=== PATIENT | male | born 1940 | race Caucasian/White ===

== ENCOUNTER 2017-10-13 15:32 | Inpatient (IN) | payer MEDICARE, OTHER ==
--- NOTE | 2017-10-13 16:01 | ED Physician Documentation ---
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 He was recently brought up from [place] to be with daughter as He was not thriving well at home. He has been confused on and off, but over the last couple of days his confusion has gone up and he is developed significant anasarca despite starting Lasix 40 mg twice daily a couple of days ago.) Review of Systems Ten Systems: 10 systems reviewed and negative Constitutional: denies: Fever, Chills Nose: denies: Rhinorrhea / runny nose, Congestion Cardiac: denies: Chest pain / pressure, Palpitations Respiratory: reports: Dyspnea (at night) PD PAST MEDICAL HISTORY - Past Medical History Past Medical History: Yes GI: Cirrhosis Other Past Medical History: melanoma, colon cancer, brain metastasis, mediastinal mass, mengioma, pancytopenia, pulmonary nodules/lesions, thrombocytopenia - Past Surgical History Past Surgical History: Yes Derm: Skin cancer surgery - Present Medications Home Medications: Ambulatory Orders Medication Instructions Recorded Confirmed Furosemide [Lasix] 1 tab PO BID 10/13/17 10/13/17 Glipizide [Glipizide ER] 1 tab PO DAILY 10/13/17 10/13/17 Lactulose 15 ml PO TID 10/13/17 10/13/17 Metoprolol Tartrate 1 tab PO BID 10/13/17 10/13/17 Omeprazole 40 mg PO DAILY 10/13/17 10/13/17 Pravastatin [Pravachol] 20 mg PO DAILY 10/13/17 10/13/17 Sertraline HCl [Zoloft] 100 mg PO DAILY 10/13/17 10/13/17 Sitagliptin Phosphate [Januvia] 25 mg PO DAILY 10/13/17 10/13/17 Tamsulosin [Flomax] 1 cap PO DAILY 10/13/17 10/13/17 clonazePAM [Clonazepam] 1 mg PO BID 10/13/17 10/13/17 - Allergies Allergies/Adverse Reactions: Allergies Allergy/AdvReac Type Severity Reaction Status Date / Time No Known Drug Allergies Allergy Verified 01/18/18 15:47 - Social History Does the pt smoke?: No Smoking Status: Never smoker Does the pt drink ETOH?: No Does the pt have substance abuse?: No - Family History Family history: reports: Non contributory - Immunizations Immunizations are current?: Yes PD ED PE NORMAL - Vitals Vital signs reviewed: Yes - General General: Alert and oriented X 3, Other (Somnolent but arousable, answers questions and is coherent) - HEENT HEENT: PERRL, EOMI, Other (Dry mucous membranes) - Neck Neck: Supple, no meningeal sign, No bony TTP - Cardiac Cardiac: RRR, No murmur - Respiratory Respiratory: No respiratory distress, Clear bilaterally - Abdomen Abdomen: Non tender, Other (Soft but distended and dull to percussion) - Rectal Rectal: Other (Incontinent of brown stool) - Back Back: No CVA TTP, No spinal TTP - Extremities Extremities: Other (He has significant body wide anasarca with some leaking fluid from the calves.) - Neuro Neuro: Alert and oriented X 3 Eye Opening: To Voice Motor: Obeys Commands Verbal: Oriented GCS Score: 14 - Psych Psych: Normal mood, Normal affect Results - Vitals Vitals: Vital Signs - 24 hr 10/13/17 10/13/17 15:39 16:38 Temperature 36.1 C L Heart Rate 119 H 61 Respiratory 22 17 Rate Blood Pressure 119/62 135/60 H O2 Saturation 97 100 Oxygen O2 Source Room air - Labs Labs: Laboratory Tests 10/13/17 10/13/17 16:01 16:01 Sodium 139 Potassium 3.8 Chloride 103 Carbon Dioxide 27 Anion Gap 9.0 BUN 34 H Creatinine 1.3 H Estimated GFR (MDRD) 53 L Glucose 117 H Calcium 8.5 Total Bilirubin 0.9 AST 26 ALT 15 Alkaline Phosphatase 67 Ammonia 119.1 H* Total Protein 6.2 L Albumin 2.7 L Globulin 3.5 Albumin/Globulin Ratio 0.8 L Lipase 30 PD MEDICAL DECISION MAKING - ED course ED course: 76-year-old gentleman with metastatic melanoma and alcoholic cirrhosis presents with an acute decline over the last few days with anasarca and confusion. He does have mild asterixis. Goals of care were discussed with the family, they are planning to enroll in hospice. However he is not in hospice yet and is found to have hepatic encephalopathy. His renal functions not too bad so the diuretics were pushed higher and he was given lactulose. Call to the hospitalist, Dr. Mac for admission at 4:45 PM. Departure - Departure Disposition: 66 [facility] DC/Xfer Clinical Impression: Hepatic encephalopathy, Anasarca, Metastatic melanoma Alcoholic cirrhosis Qualifiers: Ascites presence: with ascites Qualified Code(s): K70.31 - Alcoholic cirrhosis of liver with ascites Condition: Serious
[2017-10-13 16:22] LABS: ALBUMIN 2.7 g/dL (3.2-5.5); ALBUMIN/GLOBULIN RATIO 0.8 (1.0-2.2); BILIRUBIN,TOTAL 0.9 mg/dL (0.2-1.0); CALCIUM 8.5 mg/dL (8.5-10.3); CREATININE 1.3 mg/dL (0.6-1.2); TOTAL PROTEIN 6.2 g/dL (6.7-8.2)
[2017-10-13] MEDS ORDERED: FUROSEMIDE 40 MG/4 ML VIAL IVP STA (16:33)
[2017-10-13 16:34] LABS: BASOPHILS % (AUTO) 0.6 %; EOSINOPHILS # (AUTO) 0.1 10^3/uL (0.0-0.7); EOSINOPHILS % (AUTO) 1.8 %; HGB - HEMOGLOBIN 7.8 g/dL (14.0-18.0); LYMPHOCYTES # (AUTO) 0.6 10^3/uL (1.5-3.5); LYMPHOCYTES % (AUTO) 12.5 %; MEAN CORPUSCULAR HEMOGLOBIN 19.9 pg (27.0-31.0); MEAN CORPUSCULAR HGB CONC 29.1 g/dL (32.0-36.0); MEAN CORPUSCULAR VOLUME 68.4 fL (80.0-94.0); MEAN PLATELET VOLUME 9.4 fL (7.4-11.4); MONOCYTES # (AUTO) 0.7 10^3/uL (0.0-1.0); MONOCYTES % (AUTO) 16.3 %; NEUTROPHILS # (AUTO) 3.1 10^3/uL (1.5-6.6); NEUTROPHILS % (AUTO) 68.8 %; PLT - PLATELET COUNT 62 10^3/uL (130-450); RED BLOOD COUNT 3.92 10^6/uL (4.70-6.10); WHITE BLOOD COUNT 4.5 x10^3/uL (4.8-10.8)
[2017-10-13] MEDS ORDERED: LACTULOSE 10 GM /15 ML UDC PO STA (16:40)
[2017-10-13 16:56] LABS: PLATELET ESTIMATE, MANUAL DECREASED (<130,000) (NORMAL); PLATELET MORPHOLOGY 1+ LARGE PLATELETS (NORMAL)
[2017-10-13] MEDS ORDERED: ONDANSETRON 4 MG/2 ML VIAL IVP PRN (17:06)
[2017-10-13] MEDS ORDERED: ONDANSETRON ODT 4 MG TABLET TL PRN (17:06)
[2017-10-13] MEDS ORDERED: IBUPROFEN 600 MG TABLET PO PRN (17:06)
--- NOTE | 2017-10-13 17:17 | HISTORY & PHYSICAL EXAMINATION ---
Chief Complaint - Chief Complaint Chief Complaint: confusion and weakness History of Present Illness - Admitted From Admitted From:: ED - History Obtained From Records Reviewed: yes History obtained from: chart review, patient, family Exam Limitations: mental status - History of Present Illness HPI Comment/Other: Gorge Jones is an ill appearing 76-year old white male with a past medical history of metastatic melanoma (initial dx ~2 years ago) to the brain and chest , post gamma knife radiation, alcoholic cirrhosis, alcoholism (quit 07/01/2017), colon cancer, mengioma, pancytopenia, pulmonary nodules/lesions, thrombocytopenia, hypertension, anxiety, depression, and diabetes mellitus type 2 (controlled with oral agents). He presented to the ED with increased confusion and weakness. He and his have just moved in with his daughter who lives here in [place] from [place] due to patient's progressive debilitated state and frequent falls. He received 2 previous paracenteses in mid-August and the latest one just after the first of the year. The patient's daughter works outside the home, which leaves her mother and father alone all day, so daughter is requesting placement. Patient will be admitted for further treatment of ascites, anasarca, and placement with Hospice care. Patient request to take all life saving measures, and to remain a FULL code. History - Past Medical History Cardiovascular: reports: Hypertension, High cholesterol, Arrhythmia Respiratory: reports: Shortness of breath Neuro: reports: Other (hepatic encephalopathy) Endocrine/Autoimmune: reports: Type 2 diabetes GI: reports: GERD, Cirrhosis : reports: Frequency HEENT: reports: Chronic vision loss Psych: reports: Depression, Anxiety Musculoskeletal: reports: Fatigue Derm: reports: None MRSA Hx?: No Other Past Medical History: melanoma, colon cancer, brain metastasis, mediastinal mass, mengioma, pancytopenia, pulmonary nodules/lesions, thrombocytopenia - Past Surgical History Ortho: reports: Knee replacement (left) Neuro: reports: Gamma knife Derm: reports: Skin cancer surgery - Family & Social History Family History: Mother: , Cancer, Father: Family History Comment/Other: Unknown PMX of biological father, patient was an only child. Living arrangement: At home Living Situation: With spouse/s.o., With family - Substance History Use: Uses substance without health or social issues: Alcohol Use Issues: Intoxication, Anxiety Disorder Abuse: Recurrent use of substance despite neg consequences: Alcohol Abuse Issues: Intoxication, Anxiety Disorder Dependence: Experiences withdrawal or developed tolerances: Alcohol Dependence Issues: Intoxication, Anxiety Disorder - POLST Patient has POLST: No POLST Status: Full Code Meds/Allgy - Home Medications Home Medications: Ambulatory Orders Medication Instructions Recorded Confirmed Furosemide [Lasix] 40 mg PO BID 10/13/17 10/13/17 Glipizide [Glipizide ER] 5 mg PO DAILYWM 10/13/17 10/13/17 Lactulose 15 ml PO TID 10/13/17 10/13/17 Metoprolol Tartrate 25 mg PO BID 10/13/17 10/13/17 Omeprazole 40 mg PO QDAC 10/13/17 10/13/17 Pravastatin Sodium [Pravachol] 20 mg PO QPM 10/13/17 10/13/17 Sertraline HCl [Zoloft] 100 mg PO DAILY 10/13/17 10/13/17 Sitagliptin Phosphate [Januvia] 25 mg PO DAILY 10/13/17 10/13/17 Tamsulosin [Flomax] 0.4 mg PO DAILY 10/13/17 10/13/17 clonazePAM [Clonazepam] 1 mg PO BID 10/13/17 10/13/17 - Allergies Allergies/Adverse Reactions: Allergies Allergy/AdvReac Type Severity Reaction Status Date / Time No Known Drug Allergies Allergy Verified 10/13/17 15:47 Review of Systems - Constitutional Constitutional: reports: Fatigue, Weakness, Poor appetite, Weight gain - Eyes Eyes: reports: Corrective lenses - Cardiovascular Cariovascular: reports: Irregular heart rate, Edema, Syncope, Orthopnea - Gastrointestinal Gastrointestinal: reports: Nausea, Reflux/heartburn - Musculoskeletal Musculoskeletal: reports: Muscle weakness - Integumentary Integumentary: reports: Dryness - Neurological Neurological: reports: General weakness, Dizziness, Memory problems, Incoordination, Slurred speech - Psychiatric Psychiatric: reports: Depression, Anxiety - Hematologic/Lymphatic Hematologic/Lymphatic: reports: Bruising - All Other Systems All Other Systems: reports: Reviewed and negative Exam - Vital Signs Reviewed Vital Signs: Yes Vital Signs: Vital Signs x48h Temp Pulse Resp BP Pulse Ox 10/13/17 17:05 59 L 17 107/56 L 94 10/13/17 16:38 61 17 135/60 H 100 10/13/17 15:39 36.1 C L 119 H 22 119/62 97 - Physical Exam General Appearance: positive: No acute distress Eyes Bilateral: positive: Normal inspection ENT: positive: ENT inspection nml, Pharynx nml, Dry mucous membranes Neck: positive: Nml inspection, Thyroid nml, No JVD Respiratory: positive: Chest non-tender, No respiratory distress, Wheezes, Rales , Rhonchi Cardiovascular: positive: Irregularly irregular, Systolic murmur, Gallop/S4, Decreased pulse(s) Peripheral Pulses: positive: 1+ Abdomen: positive: Non-tender, Tenderness, Rebound, Hepatomegaly, Splenomegaly, Abnml bowel sounds Back: positive: Nml inspection Skin: positive: No rash, Warm, Dry, Pallor, Other (jaundice) Extremities: positive: Pedal edema, Joint swelling Neurologic/Psychiatric: positive: Motor nml, Weakness, Sensory loss, Slurred/ abnml speech, Depressed mood/affect Reflexes: Bicep (R): 1+, Bicep (L): 1+ Conclusion/Plan - Problem List (1) Alcoholic cirrhosis Conclusion/Plan: Patient has a very, tympanic, rounded, distended abdomen. He is slightly jaundiced. Per family, he had a paracentesis in mid-August, and again after the first of the year. We are now about 2 weeks from the last tap. Patient admits to life-long ETOH dependence, and states that he most recently quit on . Plan: Contact general surgery for recommendations, place order for procedure. Qualifiers: Ascites presence: with ascites Qualified Code(s): K70.31 - Alcoholic cirrhosis of liver with ascites (2) Anasarca Conclusion/Plan: Patient is profoundly 3rd-spaced all over his body. He has pitting edema in all extremities and over his torso and back. Plan: Continue aggressive diuretic use and plan for paracentesis. (3) Hepatic encephalopathy Conclusion/Plan: Patient was very confused upon presentation to ED. This did not improve at the time of his exam, so family was contacted and a chart review was completed. Plan: Continue current treatment of lactulose PO TID as at home. (4) Metastatic melanoma Conclusion/Plan: Patient was first diagnosed ~2 years ago and had a lesion removed from his back. Metastatic sites were brain and mediastinal chest. Plan: Patient states he is interested in Hospice care, although wants to remain a full code. - Lab Results Lab results reviewed: Yes Fish Bones: 10/14/17 05:10 10/14/17 05:10 - Diagnostic Imaging Results Diagnostic Imaging Results: positive: Final report reviewed - EKG Results EKG Interpreted Independently: Yes Core Measures - Anticipated LOS I expect patient to be DC'd or transferred within 96 hours.: Yes - DVT/VTE - Prophylaxis VTE/DVT Device ordered at admit?: Yes VTE/DVT Prophylaxis med ordered at admit?: No Not Ordered - Medical Reason: Contraindicated - Stroke - Rehab Assessment Rehab services assessment to be ordered?: Yes - AMI - Statin at Admit Aspirin Prescribed on Admit: No Not Ordered - Medical Reason: Contraindicated
[2017-10-13] MEDS ORDERED: SODIUM CHLORIDE 0.9% 1,000 ML IV SCH (18:30)
[2017-10-13] MEDS ORDERED: LIDOCAINE 2% URO-JET 5 ML SYRINGE UR SCH (19:05)
[2017-10-13] MEDS: INSULIN ASPART 300 UNIT/3 ML PEN SUBQ SCH (21:16)
[2017-10-13] MEDS: INSULIN GLARGINE 300 UNIT/3 ML PEN SUBQ SCH (21:34)
[2017-10-13] MEDS: traZODone 50 MG TABLET PO SCH ×2 (21:34→21:40)
[2017-10-13] MEDS: SODIUM CHLORIDE FLUSH 0.9% 10 ML SYRINGE IVP SCH (21:34)
[2017-10-13 21:38] LABS: INR 1.2 (0.8-1.2); PT - PROTHROMBIN TIME 13.9 secs (9.9-12.6)
--- NOTE | 2017-10-13 22:50 | XRAY Report ---
EXAM: CHEST RADIOGRAPHY EXAM DATE: 10/13/2017 10:38 PM. CLINICAL HISTORY: Weakness. COMPARISON: None. TECHNIQUE: 1 view. FINDINGS: Lungs/Pleura: Elevated right hemidiaphragm. The visualized lungs are otherwise clear. No pleural effu bart or pneumothorax. Mediastinum: Within exam limitations, the cardiomediastinal contour is normal. Other: None. IMPRESSION: Elevated right hemidiaphragm otherwise unremarkable portable chest radiograph. [facility] Referring Provider Line: [phone] SITE ID: [id number]
[2017-10-14 05:40] LABS: BASOPHILS % (AUTO) 4.7 %; EOSINOPHILS % (AUTO) 2.2 %; HGB - HEMOGLOBIN 7.6 g/dL (14.0-18.0); LYMPHOCYTES % (AUTO) 8.9 %; MEAN CORPUSCULAR HGB CONC 30.9 g/dL (32.0-36.0); MEAN CORPUSCULAR VOLUME 64.7 fL (80.0-94.0); MEAN PLATELET VOLUME 8.5 fL (7.4-11.4); MONOCYTES % (AUTO) 12.2 %; PLT - PLATELET COUNT 50 10^3/uL (130-450); RED BLOOD COUNT 3.81 10^6/uL (4.70-6.10); RED CELL DISTRIBUTION WIDTH 20.4 % (12.0-15.0)
[2017-10-14 05:42] LABS: ALBUMIN 2.5 g/dL (3.2-5.5); ALBUMIN/GLOBULIN RATIO 0.8 (1.0-2.2); BILIRUBIN,TOTAL 1.3 mg/dL (0.2-1.0); CALCIUM 8.3 mg/dL (8.5-10.3); CREATININE 1.2 mg/dL (0.6-1.2); MAGNESIUM 2.1 mg/dL (1.7-2.8); PHOSPHORUS 3.8 mg/dL (2.5-4.6); TOTAL PROTEIN 5.7 g/dL (6.7-8.2)
[2017-10-14 05:43] LABS: HEMOGLOBIN A1C 0.4 g/dL; HEMOGLOBIN A1C % 6.7 % (4.6-6.2)
[2017-10-14 05:45] LABS: ABNORMAL LYMPHS % (MANUAL) 0 %; BAND NEUTROPHILS % (MANUAL) 0 %
[2017-10-14 06:11] LABS: LYMPHOCYTES # (MANUAL) 0.4 10^3/uL (1.5-3.5); LYMPHOCYTES % (MANUAL) 10 %; MONOCYTES # (MANUAL) 0.2 10^3/uL (0.0-1.0); NEUTROPHILS # (MANUAL) 3.3 10^3/uL (1.5-6.6); NEUTROPHILS % (MANUAL) 83 %
[2017-10-14 06:12] LABS: DIFFERENTIAL COMMENT MANUAL DIFFERENTIAL; PLATELET ESTIMATE, MANUAL DECREASED (<130,000) (NORMAL); PLATELET MORPHOLOGY 1+ GIANT PLATELETS (NORMAL)
[2017-10-14] MEDS: SODIUM CHLORIDE FLUSH 0.9% 10 ML SYRINGE IVP SCH ×3 (06:16→22:41)
[2017-10-14] MEDS: PANTOPRAZOLE 40 MG TABLET PO SCH (06:16)
[2017-10-14] MEDS: INSULIN ASPART 300 UNIT/3 ML PEN SUBQ SCH ×4 (08:38→22:46)
[2017-10-14] MEDS ORDERED: METOPROLOL TARTRATE 25 MG TABLET PO SCH (09:00)
[2017-10-14] MEDS: POLYETHYLENE GLYCOL 3350 17 GM PACKET PO SCH (09:11)
[2017-10-14] MEDS: LACTULOSE 10 GM /15 ML UDC PO SCH ×4 (09:25→22:40)
[2017-10-14] MEDS: FUROSEMIDE 100 MG/10 ML VIAL IVP SCH (09:25)
[2017-10-14] MEDS: SODIUM CHLORIDE FLUSH 0.9% 10 ML SYRINGE IVP PRN ×2 (09:27→14:07)
[2017-10-14] MEDS: SPIRONOLACTONE 25 MG TABLET PO SCH (11:16)
--- NOTE | 2017-10-14 12:36 | CONSULTATION NOTE ---
DATE OF SERVICE: 10/14/2017 Physician: Willie Crouch MD REFERRING PROVIDER: Eufemia Gray MD REASON FOR REFERRAL: Ascites, possible paracentesis. HISTORY OF PRESENT ILLNESS: The patient is a 76-year-old male who has history of metastatic melanoma, along with alcoholism, colon cancer and liver cirrhosis. He has developed ascites, having undergone 2 previous paracenteses. He now presents with increasing abdominal girth and, therefore, request for possible paracentesis has been made. PAST MEDICAL HISTORY: Hypertension, hypercholesterolemia, liver cirrhosis with ascites and hepatic encephalopathy, diabetes, gastroesophageal reflux disease, depression, anxiety, metastatic melanoma. MEDICATIONS 1. Lasix. 2. Glipizide. 3. Lactulose. 4. Metoprolol. 5. Omeprazole. 6. Pravachol. 7. Zoloft. 8. Januvia. 9. Flomax. 10. Clonazepam. PAST SURGICAL HISTORY: Melanoma, colon cancer, knee replacement. SOCIAL HISTORY: The patient is and lives with his daughter. FAMILY HISTORY: Mother with unknown cancer. REVIEW OF SYSTEMS: A complete review of systems was obtained. Pertinent positives are: CONSTITUTIONAL: Anorexia and weakness. RESPIRATORY: Shortness of breath. GASTROINTESTINAL: Abdominal distention and reflux. PSYCHIATRIC: Depression. PHYSICAL EXAMINATION VITAL SIGNS: Blood pressure 107/56, pulse 59, temperature is 36.1. GENERAL: The patient is lying in bed, not in any distress. HEENT: Eyes nonicteric. NECK: No lymphadenopathy. HEART: Regular. LUNGS: Diminished. ABDOMEN: Distended with a small umbilical hernia, nontender. EXTREMITIES: Minimal edema. Normal motor function. PSYCHOLOGICAL: Most of the history has been gained from the chart. He is oriented to his name. DIAGNOSTIC DATA: INR is 1.2, platelet is 50, Hemoglobin 7.6, white blood cell count of 4. ASSESSMENT 1. History of alcoholism with liver cirrhosis and ascites, undergoing 2 previous paracenteses. He is distended again and has been requested to have him undergo another paracentesis. The risks and possible complications of the procedure have been explained to him. He wishes to proceed with the procedure. 2. Anemia, most likely secondary to his liver disease and diabetes, also could be from gastrointestinal bleeding. He has possibility of having esophageal varices. Recommend careful evaluation of this and seeing if he has blood in his stool. PLAN: Paracentesis. TD: 10/14/2017 13:35
[2017-10-14] MEDS ORDERED: ALBUMIN 25% 12.5 GM/50 ML VIAL IV ONE (14:00)
--- NOTE | 2017-10-14 16:56 | PROVIDER PROGRESS NOTE ---
Subjective - Prog Note Date Prog Note Date: 10/14/17 Prog Note Time: 16:51 - Subjective Pt reports feeling: Improved Subjective: Perry agrees with a paracentesis today for improved comfort. He denies N/V, bleeding, or a new cough. Current Medications - Current Medications Current Medications: Active Medications Furosemide (Lasix Inj 100mg Vial) 80 mg IVP DAILY [facility] Last Admin: 10/14/17 09:25 Dose: 80 mg Ibuprofen (Motrin) 600 mg PO Q6HR PRN PRN Reason: Pain 1 to 4 Insulin Aspart (Novolog) 1 - 5 unit SUBQ 0800,1200,1700,2100 [facility] PRN Reason: Protocol Last Admin: 10/14/17 12:26 Dose: 2 unit Insulin Glargine (Lantus Solostar) 10 unit SUBQ QPM [facility] Last Admin: 10/13/17 21:34 Dose: 10 unit Lactulose (Enulose) 10 gm PO TID [facility] Last Admin: 10/14/17 14:14 Dose: Not Given Metoprolol Tartrate (Lopressor) 25 mg PO BID [facility] Ondansetron HCl (Zofran Inj) 4 mg IVP Q6HR PRN PRN Reason: Nausea / Vomiting Ondansetron HCl (Zofran Odt) 4 mg TL Q6HR PRN PRN Reason: Nausea / Vomiting Pantoprazole Sodium (Protonix) 40 mg PO QDAC [facility] Last Admin: 10/14/17 06:16 Dose: 40 mg Polyethylene Glycol (Miralax) 17 gm PO DAILY [facility] Last Admin: 10/14/17 09:11 Dose: Not Given Sodium Chloride (Normal Saline Flush 0.9%) 10 ml IVP PRN PRN PRN Reason: NEEDED PER PROVIDER ORDERS Last Admin: 10/14/17 14:07 Dose: 10 ml Sodium Chloride (Normal Saline Flush 0.9%) 10 ml IVP Q8HR [facility] Last Admin: 10/14/17 14:07 Dose: 10 ml Spironolactone (Aldactone) 25 mg PO DAILY [facility] Last Admin: 10/14/17 11:16 Dose: 25 mg Trazodone HCl (Desyrel) 100 mg PO QPM [facility] Last Admin: 10/13/17 21:40 Dose: 100 mg Furosemide [Lasix] 40 mg PO BID 10/13/17 Glipizide [Glipizide ER] 5 mg PO DAILYWM 10/13/17 Lactulose 15 ml PO TID 10/13/17 Metoprolol Tartrate 25 mg PO BID 10/13/17 Omeprazole 40 mg PO QDAC 10/13/17 Pravastatin Sodium [Pravachol] 20 mg PO QPM 10/13/17 Sertraline HCl [Zoloft] 100 mg PO DAILY 10/13/17 Sitagliptin Phosphate [Januvia] 25 mg PO DAILY 10/13/17 Tamsulosin [Flomax] 0.4 mg PO DAILY 10/13/17 clonazePAM [Clonazepam] 1 mg PO BID 10/13/17 Objective - Vital Signs/Intake & Output Vital Signs: Vital Signs x48h Temp Pulse Pulse Resp BP Pulse Ox 10/14/17 15:27 36.6 C 74 16 122/52 L 92 10/14/17 13:40 36.4 C L 77 24 132/43 H 92 Intake & Output: Intake & Output 10/11/17 10/12/17 10/13/17 10/14/17 23:59 23:59 23:59 23:59 Intake Total 120 940 Output Total 501 1950 Balance -381 -1010 - Objective General Appearance: positive: Moderate distress, Anxious, Lethargic Eyes: OU Scleral icterus ENT: positive: ENT inspection nml, Dry mucous membranes, Other Neck: positive: Trachea midline, Stiff neck Respiratory: positive: Chest non-tender, Rales, Rhonchi Cardiovascular: positive: Irregularly irregular, JVD present, Systolic murmur, Diastolic murmur, Gallop/S4, Decreased pulse(s) Peripheral Pulses: 1+ Radial (R), 1+ Radial (L) Abdomen: positive: Rebound, Hepatomegaly, Splenomegaly Rectal: positive: Tenderness Back: positive: Nml inspection Skin: positive: No rash, Warm, Dry Extremities: positive: Pedal edema, Joint swelling Neurologic/Psychiatric: positive: Motor nml, Sensory loss, Slurred/abnml speech , Depressed mood/affect Reflexes: Bicep (R): 1+, Bicep (L): 1+ - Lab Results Fish Bones: 10/14/17 05:10 10/14/17 05:10 Other Labs: Lab Results x24hrs 01/19/18 01/19/18 01/19/18 Range/Units 16:46 12:23 07:32 WBC (4.8-10.8) x10^3/uL RBC (4.70-6.10) 10^6/uL Hgb (14.0-18.0) g/dL Hct (42.0-52.0) % MCV (80.0-94.0) fL MCH (27.0-31.0) pg MCHC (32.0-36.0) g/dL RDW (12.0-15.0) % Plt Count (130-450) 10^3/uL MPV (7.4-11.4) fL Neut # Lymph # Scurry # Eos # Baso # Absolute Nucleated RBC Total Counted Band Neuts % (Manual) (0 - 10) % Abnorm Lymph % (Manual) % Nucleated RBC % Neutrophils # (Manual) (1.5-6.6) 10^3/uL Lymphocytes # (Manual) (1.5-3.5) 10^3/uL Monocytes # (Manual) (0.0-1.0) 10^3/uL Eosinophils # (Manual) (0-0.7) 10^3/uL Basophils # (Manual) (0-0.1) 10^3/uL Differential Comment Platelet Estimate (NORMAL) Platelet Morphology (NORMAL) RBC Morph Micro Appear (NORMAL) Sodium (135-145) mmol/L Potassium (3.5-5.0) mmol/L Chloride (101-111) mmol/L Carbon Dioxide (21-32) mmol/L Anion Gap (6-13) BUN (6-20) mg/dL Creatinine (0.6-1.2) mg/dL Estimated GFR (MDRD) (>89) Glucose (70-100) mg/dL POC Whole Bld Glucose 208 H 203 H 102 H (70 - 100) mg/dL Glycated Hemoglobin (4.6-6.2) % Estim Average Glucose (70-100) Lactic Acid (0.5-2.2) mmol/L Calcium (8.5-10.3) mg/dL Phosphorus (2.5-4.6) mg/dL Magnesium (1.7-2.8) mg/dL Total Bilirubin (0.2-1.0) mg/dL AST (10-42) IU/L ALT (10-60) IU/L Alkaline Phosphatase (42-121) IU/L Ammonia (7-35) umol/L Total Protein (6.7-8.2) g/dL Albumin (3.2-5.5) g/dL Globulin (2.1-4.2) g/dL Albumin/Globulin Ratio (1.0-2.2) Blood Type Antibody Screen 10/14/17 10/14/17 10/14/17 Range/Units 05:10 05:10 05:10 WBC (4.8-10.8) x10^3/uL RBC (4.70-6.10) 10^6/uL Hgb (14.0-18.0) g/dL Hct (42.0-52.0) % MCV (80.0-94.0) fL MCH (27.0-31.0) pg MCHC (32.0-36.0) g/dL RDW (12.0-15.0) % Plt Count (130-450) 10^3/uL MPV (7.4-11.4) fL Neut # Lymph # Scurry # Eos # Baso # Absolute Nucleated RBC Total Counted Band Neuts % (Manual) (0 - 10) % Abnorm Lymph % (Manual) % Nucleated RBC % Neutrophils # (Manual) (1.5-6.6) 10^3/uL Lymphocytes # (Manual) (1.5-3.5) 10^3/uL Monocytes # (Manual) (0.0-1.0) 10^3/uL Eosinophils # (Manual) (0-0.7) 10^3/uL Basophils # (Manual) (0-0.1) 10^3/uL Differential Comment Platelet Estimate (NORMAL) Platelet Morphology (NORMAL) RBC Morph Micro Appear (NORMAL) Sodium 140 (135-145) mmol/L Potassium 3.2 L (3.5-5.0) mmol/L Chloride 103 (101-111) mmol/L Carbon Dioxide 27 (21-32) mmol/L Anion Gap 10.0 (6-13) BUN 31 H (6-20) mg/dL Creatinine 1.2 (0.6-1.2) mg/dL Estimated GFR (MDRD) 59 L (>89) Glucose 99 (70-100) mg/dL POC Whole Bld Glucose (70 - 100) mg/dL Glycated Hemoglobin (4.6-6.2) % Estim Average Glucose (70-100) Lactic Acid 1.2 (0.5-2.2) mmol/L Calcium 8.3 L (8.5-10.3) mg/dL Phosphorus 3.8 (2.5-4.6) mg/dL Magnesium 2.1 (1.7-2.8) mg/dL Total Bilirubin 1.3 H (0.2-1.0) mg/dL AST 23 (10-42) IU/L ALT 14 (10-60) IU/L Alkaline Phosphatase 61 (42-121) IU/L Ammonia 32.8 (7-35) umol/L Total Protein 5.7 L (6.7-8.2) g/dL Albumin 2.5 L (3.2-5.5) g/dL Globulin 3.2 (2.1-4.2) g/dL Albumin/Globulin Ratio 0.8 L (1.0-2.2) Blood Type Antibody Screen 10/14/17 10/14/17 10/13/17 Range/Units 05:10 05:10 20:15 WBC 4.0 L (4.8-10.8) x10^3/uL RBC 3.81 L (4.70-6.10) 10^6/uL Hgb 7.6 L (14.0-18.0) g/dL Hct 24.7 L (42.0-52.0) % MCV 64.7 L (80.0-94.0) fL MCH 20.0 L (27.0-31.0) pg MCHC 30.9 L (32.0-36.0) g/dL RDW 20.4 H (12.0-15.0) % Plt Count 50 L (130-450) 10^3/uL MPV 8.5 (7.4-11.4) fL Neut # Not Reportable Lymph # Not Reportable Scurry # Not Reportable Eos # Not Reportable Baso # Not Reportable Absolute Nucleated RBC Not Reportable Total Counted 100 Band Neuts % (Manual) 0 (0 - 10) % Abnorm Lymph % (Manual) 0 % Nucleated RBC % Not Reportable Neutrophils # (Manual) 3.3 (1.5-6.6) 10^3/uL Lymphocytes # (Manual) 0.4 L (1.5-3.5) 10^3/uL Monocytes # (Manual) 0.2 (0.0-1.0) 10^3/uL Eosinophils # (Manual) 0.0 (0-0.7) 10^3/uL Basophils # (Manual) 0.0 (0-0.1) 10^3/uL Differential Comment MANUAL DIFFERENTIAL Platelet Estimate DECREASED (<130,000) (NORMAL) Platelet Morphology 1+ GIANT PLATELETS (NORMAL) RBC Morph Micro Appear 1+ BASO STIPPLING (NORMAL) Sodium (135-145) mmol/L Potassium (3.5-5.0) mmol/L Chloride (101-111) mmol/L Carbon Dioxide (21-32) mmol/L Anion Gap (6-13) BUN (6-20) mg/dL Creatinine (0.6-1.2) mg/dL Estimated GFR (MDRD) (>89) Glucose (70-100) mg/dL POC Whole Bld Glucose 124 H (70 - 100) mg/dL Glycated Hemoglobin 6.7 H (4.6-6.2) % Estim Average Glucose 146 H (70-100) Lactic Acid (0.5-2.2) mmol/L Calcium (8.5-10.3) mg/dL Phosphorus (2.5-4.6) mg/dL Magnesium (1.7-2.8) mg/dL Total Bilirubin (0.2-1.0) mg/dL AST (10-42) IU/L ALT (10-60) IU/L Alkaline Phosphatase (42-121) IU/L Ammonia (7-35) umol/L Total Protein (6.7-8.2) g/dL Albumin (3.2-5.5) g/dL Globulin (2.1-4.2) g/dL Albumin/Globulin Ratio (1.0-2.2) Blood Type Antibody Screen 10/13/17 Range/Units 17:45 WBC (4.8-10.8) x10^3/uL RBC (4.70-6.10) 10^6/uL Hgb (14.0-18.0) g/dL Hct (42.0-52.0) % MCV (80.0-94.0) fL MCH (27.0-31.0) pg MCHC (32.0-36.0) g/dL RDW (12.0-15.0) % Plt Count (130-450) 10^3/uL MPV (7.4-11.4) fL Neut # Lymph # Scurry # Eos # Baso # Absolute Nucleated RBC Total Counted Band Neuts % (Manual) (0 - 10) % Abnorm Lymph % (Manual) % Nucleated RBC % Neutrophils # (Manual) (1.5-6.6) 10^3/uL Lymphocytes # (Manual) (1.5-3.5) 10^3/uL Monocytes # (Manual) (0.0-1.0) 10^3/uL Eosinophils # (Manual) (0-0.7) 10^3/uL Basophils # (Manual) (0-0.1) 10^3/uL Differential Comment Platelet Estimate (NORMAL) Platelet Morphology (NORMAL) RBC Morph Micro Appear (NORMAL) Sodium (135-145) mmol/L Potassium (3.5-5.0) mmol/L Chloride (101-111) mmol/L Carbon Dioxide (21-32) mmol/L Anion Gap (6-13) BUN (6-20) mg/dL Creatinine (0.6-1.2) mg/dL Estimated GFR (MDRD) (>89) Glucose (70-100) mg/dL POC Whole Bld Glucose (70 - 100) mg/dL Glycated Hemoglobin (4.6-6.2) % Estim Average Glucose (70-100) Lactic Acid (0.5-2.2) mmol/L Calcium (8.5-10.3) mg/dL Phosphorus (2.5-4.6) mg/dL Magnesium (1.7-2.8) mg/dL Total Bilirubin (0.2-1.0) mg/dL AST (10-42) IU/L ALT (10-60) IU/L Alkaline Phosphatase (42-121) IU/L Ammonia (7-35) umol/L Total Protein (6.7-8.2) g/dL Albumin (3.2-5.5) g/dL Globulin (2.1-4.2) g/dL Albumin/Globulin Ratio (1.0-2.2) Blood Type A POSITIVE Antibody Screen NEGATIVE - Diagnostic Imaging Diagnostic Imaging Results: positive: Final report reviewed Assessment/Plan - Problem List (1) Hepatic encephalopathy Impression: Patient was very confused upon presentation to ED. This did not improve at the time of his exam, so family was contacted and a chart review was completed. Plan: Continue current treatment of lactulose PO TID as at home. (2) Alcohol dependence Impression: Patient has a very, tympanic, rounded, distended abdomen. He is slightly jaundiced. Per family, he had a paracentesis in mid-August, and again after the first of the year. We are now about 2 weeks from the last tap. Patient admits to life-long ETOH dependence, and states that he most recently quit on . A parencentesis was completed at the bedside by Dr. Crouch, General surgery and 7L was drained off. Plan: Continue cessation. 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 Metastatic sites were brain and mediastinal chest. Plan: Patient states he is interested in Hospice care, although wants to remain a full code. (4) Alcoholic cirrhosis of liver with ascites Impression: Patient has a very, tympanic, rounded, distended abdomen. He is slightly jaundiced. Per family, he had a paracentesis in mid-August, and again after the first of the year. We are now about 2 weeks from the last tap. Patient admits to life-long ETOH dependence, and states that he most recently quit on . Patient is profoundly 3rd-spaced all over his body. He has pitting edema in all extremities and over his torso and back. A parencentesis was completed at the bedside by Dr. Crouch, General surgery and 7L was drained off. Albumin x1 IV was given. Plan: Continue aggressive diuretic use and monitor.
[2017-10-14] MEDS: INSULIN GLARGINE 300 UNIT/3 ML PEN SUBQ SCH (22:38)
[2017-10-14] MEDS: traZODone 50 MG TABLET PO SCH (22:39)
[2017-10-14] MEDS: METOPROLOL TARTRATE 25 MG TABLET PO SCH (22:40)
[2017-10-15] MEDS: LACTULOSE 10 GM /15 ML UDC PO SCH ×3 (05:17→20:45)
[2017-10-15] MEDS: PANTOPRAZOLE 40 MG TABLET PO SCH (05:17)
[2017-10-15] MEDS: SODIUM CHLORIDE FLUSH 0.9% 10 ML SYRINGE IVP SCH ×3 (05:19→20:49)
[2017-10-15] MEDS: POLYETHYLENE GLYCOL 3350 17 GM PACKET PO SCH (08:00)
[2017-10-15] MEDS: INSULIN ASPART 300 UNIT/3 ML PEN SUBQ SCH ×4 (08:18→20:47)
[2017-10-15] MEDS: SODIUM CHLORIDE FLUSH 0.9% 10 ML SYRINGE IVP PRN (08:30)
[2017-10-15] MEDS: FUROSEMIDE 100 MG/10 ML VIAL IVP SCH (08:30)
[2017-10-15 08:38] LABS: BASOPHILS % (AUTO) 0.5 %; EOSINOPHILS # (AUTO) 0.1 10^3/uL (0.0-0.7); EOSINOPHILS % (AUTO) 1.6 %; LYMPHOCYTES # (AUTO) 0.6 10^3/uL (1.5-3.5); LYMPHOCYTES % (AUTO) 11.1 %; MEAN CORPUSCULAR HEMOGLOBIN 20.3 pg (27.0-31.0); MEAN CORPUSCULAR HGB CONC 30.6 g/dL (32.0-36.0); MEAN CORPUSCULAR VOLUME 66.3 fL (80.0-94.0); MEAN PLATELET VOLUME 8.9 fL (7.4-11.4); MONOCYTES # (AUTO) 0.7 10^3/uL (0.0-1.0); MONOCYTES % (AUTO) 12.1 %; NEUTROPHILS # (AUTO) 4.2 10^3/uL (1.5-6.6); NEUTROPHILS % (AUTO) 74.7 %; PLT - PLATELET COUNT 42 10^3/uL (130-450); RED BLOOD COUNT 3.95 10^6/uL (4.70-6.10); RED CELL DISTRIBUTION WIDTH 20.6 % (12.0-15.0); WHITE BLOOD COUNT 5.6 x10^3/uL (4.8-10.8)
[2017-10-15 08:42] LABS: ALBUMIN 2.5 g/dL (3.2-5.5); ALBUMIN/GLOBULIN RATIO 0.8 (1.0-2.2); BILIRUBIN,TOTAL 1.5 mg/dL (0.2-1.0); CALCIUM 8.2 mg/dL (8.5-10.3); CREATININE 1.2 mg/dL (0.6-1.2); TOTAL PROTEIN 5.5 g/dL (6.7-8.2)
[2017-10-15 08:57] LABS: PLATELET ESTIMATE, MANUAL DECREASED (<130,000) (NORMAL); PLATELET MORPHOLOGY 1+ LARGE PLATELETS (NORMAL)
[2017-10-15] MEDS: SPIRONOLACTONE 25 MG TABLET PO SCH (10:14)
[2017-10-15] MEDS: POTASSIUM CHLORIDE 20 MEQ TABLET PO SCH ×2 (10:15→17:11)
[2017-10-15] MEDS: METOPROLOL TARTRATE 25 MG TABLET PO SCH ×2 (10:15→20:49)
--- NOTE | 2017-10-15 13:41 | PROVIDER PROGRESS NOTE ---
Subjective - Prog Note Date Prog Note Date: 10/15/17 Prog Note Time: 09:00 - Subjective Pt reports feeling: Improved, No change, Worse Subjective: Perry wishes to return home, but has not had a full recovery regarding his mental status, electrolyte abnormalities, or fluid imbalance. He denies chest pain, vomiting, shortness of breath, or a new cough. He notes an easier time breathing. He complains of increased anxiety with slight nausea, and wonders about resuming his home medications. , son and [id number] were present for this exam and the plan of care was reviewed. Questions were addressed regarding upcoming alf placement to prevent a sentinel event from taking place as this patient is at high risk for falls given his potential for worsening altered mental status and fluid/ electrolyte imbalances. All parties were in agreement. Current Medications - Current Medications Current Medications: Active Medications Furosemide (Lasix Inj 100mg Vial) 80 mg IVP DAILY [facility] Last Admin: 10/15/17 08:30 Dose: 80 mg Ibuprofen (Motrin) 600 mg PO Q6HR PRN PRN Reason: Pain 1 to 4 Insulin Aspart (Novolog) 1 - 5 unit SUBQ 0800,1200,1700,2100 [facility] PRN Reason: Protocol Last Admin: 10/15/17 11:45 Dose: 5 unit Insulin Glargine (Lantus Solostar) 10 unit SUBQ QPM [facility] Last Admin: 10/14/17 22:38 Dose: 10 unit Lactulose (Enulose) 10 gm PO TID [facility] Last Admin: 10/15/17 05:17 Dose: 10 gm Metoprolol Tartrate (Lopressor) 25 mg PO BID [facility] Last Admin: 10/15/17 10:15 Dose: 25 mg Ondansetron HCl (Zofran Inj) 4 mg IVP Q6HR PRN PRN Reason: Nausea / Vomiting Ondansetron HCl (Zofran Odt) 4 mg TL Q6HR PRN PRN Reason: Nausea / Vomiting Pantoprazole Sodium (Protonix) 40 mg PO QDAC [facility] Last Admin: 10/15/17 05:17 Dose: 40 mg Polyethylene Glycol (Miralax) 17 gm PO DAILY [facility] Last Admin: 10/15/17 08:00 Dose: Not Given Potassium Chloride (K-Dur) 40 meq PO BIDWM [facility] Last Admin: 10/15/17 10:15 Dose: 40 meq Sodium Chloride (Normal Saline Flush 0.9%) 10 ml IVP PRN PRN PRN Reason: NEEDED PER PROVIDER ORDERS Last Admin: 10/15/17 08:30 Dose: 10 ml Sodium Chloride (Normal Saline Flush 0.9%) 10 ml IVP Q8HR [facility] Last Admin: 10/15/17 05:19 Dose: 10 ml Spironolactone (Aldactone) 25 mg PO DAILY [facility] Last Admin: 10/15/17 10:14 Dose: 25 mg Trazodone HCl (Desyrel) 100 mg PO QPM [facility] Last Admin: 10/14/17 22:39 Dose: 100 mg Furosemide [Lasix] 40 mg PO BID 10/13/17 Glipizide [Glipizide ER] 5 mg PO DAILYWM 10/13/17 Lactulose 15 ml PO TID 10/13/17 Metoprolol Tartrate 25 mg PO BID 10/13/17 Omeprazole 40 mg PO QDAC 10/13/17 Pravastatin Sodium [Pravachol] 20 mg PO QPM 10/13/17 Sertraline HCl [Zoloft] 100 mg PO DAILY 10/13/17 Sitagliptin Phosphate [Januvia] 25 mg PO DAILY 10/13/17 Tamsulosin [Flomax] 0.4 mg PO DAILY 10/13/17 clonazePAM [Clonazepam] 1 mg PO BID 10/13/17 Objective - Vital Signs/Intake & Output Reviewed Vital Signs: Yes Vital Signs: Vital Signs x48h Temp Pulse Pulse Resp Resp BP BP 10/15/17 11:53 77 18 115/74 10/15/17 07:37 36.4 C L 101 H 22 117/57 L Pulse Ox Pulse Ox 10/15/17 11:53 94 10/15/17 07:37 95 Intake & Output: Intake & Output 10/12/17 10/13/17 10/14/17 10/15/17 23:59 23:59 23:59 23:59 Intake Total 120 2210 510 Output Total 501 2350 850 Balance -782 -140 -340 - Objective General Appearance: positive: No acute distress, Lethargic Eyes: OU Conjunctivae pale, OU Scleral icterus ENT: positive: Dry mucous membranes, Other (very dry mouth, sleeps with mouth open) Neck: positive: Thyroid nml, Stiff neck Respiratory: positive: Chest non-tender, Rales, Rhonchi Cardiovascular: positive: Irregularly irregular, Systolic murmur, Gallop/S3, Decreased pulse(s) Peripheral Pulses: 1+ Radial (R), 1+ Radial (L) Abdomen: positive: Guarding, Rebound, Hepatomegaly, Splenomegaly, Abnml bowel sounds, Other (ascities worse today.) Back: positive: Nml inspection Skin: positive: No rash, Warm, Dry, Pallor, Other (jandice) Extremities: positive: Non-tender, Pedal edema, Joint swelling Neurologic/Psychiatric: positive: Disoriented to time, Weakness, Sensory loss, Slurred/abnml speech, Depressed mood/affect Reflexes: Bicep (R): 1+, Bicep (L): 1+ - Lab Results Fish Bones: 10/15/17 06:40 10/15/17 06:40 Other Labs: Lab Results x24hrs 10/15/17 10/15/17 10/15/17 Range/Units 11:12 07:36 06:41 WBC (4.8-10.8) x10^3/uL RBC (4.70-6.10) 10^6/uL Hgb (14.0-18.0) g/dL Hct (42.0-52.0) % MCV (80.0-94.0) fL MCH (27.0-31.0) pg MCHC (32.0-36.0) g/dL RDW (12.0-15.0) % Plt Count (130-450) 10^3/uL MPV (7.4-11.4) fL Neut # (1.5-6.6) 10^3/uL Lymph # (1.5-3.5) 10^3/uL [place] # (0.0-1.0) 10^3/uL Eos # (0.0-0.7) 10^3/uL Baso # (0.0-0.1) 10^3/uL Absolute Nucleated RBC x10^3/uL Nucleated RBC % /100WBC Manual Slide Review Platelet Estimate (NORMAL) Platelet Morphology (NORMAL) RBC Morph Micro Appear (NORMAL) Sodium (135-145) mmol/L Potassium (3.5-5.0) mmol/L Chloride (101-111) mmol/L Carbon Dioxide (21-32) mmol/L Anion Gap (6-13) BUN (6-20) mg/dL Creatinine (0.6-1.2) mg/dL Estimated GFR (MDRD) (>89) Glucose (70-100) mg/dL POC Whole Bld Glucose 229 H 141 H (70 - 100) mg/dL Calcium (8.5-10.3) mg/dL Total Bilirubin (0.2-1.0) mg/dL AST (10-42) IU/L ALT (10-60) IU/L Alkaline Phosphatase (42-121) IU/L Ammonia 39.8 H (7-35) umol/L B-Natriuretic Peptide (5-100) pg/mL Total Protein (6.7-8.2) g/dL Albumin (3.2-5.5) g/dL Globulin (2.1-4.2) g/dL Albumin/Globulin Ratio (1.0-2.2) 10/15/17 10/15/17 10/15/17 Range/Units 06:40 06:40 06:40 WBC 5.6 (4.8-10.8) x10^3/uL RBC 3.95 L (4.70-6.10) 10^6/uL Hgb 8.0 L (14.0-18.0) g/dL Hct 26.2 L (42.0-52.0) % MCV 66.3 L (80.0-94.0) fL MCH 20.3 L (27.0-31.0) pg MCHC 30.6 L (32.0-36.0) g/dL RDW 20.6 H (12.0-15.0) % Plt Count 42 L (130-450) 10^3/uL MPV 8.9 (7.4-11.4) fL Neut # 4.2 (1.5-6.6) 10^3/uL Lymph # 0.6 L (1.5-3.5) 10^3/uL [place] # 0.7 (0.0-1.0) 10^3/uL Eos # 0.1 (0.0-0.7) 10^3/uL Baso # 0.0 (0.0-0.1) 10^3/uL Absolute Nucleated RBC 0.01 x10^3/uL Nucleated RBC % 0.1 /100WBC Manual Slide Review Indicated Platelet Estimate DECREASED (<130,000) (NORMAL) Platelet Morphology 1+ LARGE PLATELETS (NORMAL) RBC Morph Micro Appear 1+ TARGET CELLS (NORMAL) Sodium 138 (135-145) mmol/L Potassium 3.2 L (3.5-5.0) mmol/L Chloride 100 L (101-111) mmol/L Carbon Dioxide 27 (21-32) mmol/L Anion Gap 11.0 (6-13) BUN 26 H (6-20) mg/dL Creatinine 1.2 (0.6-1.2) mg/dL Estimated GFR (MDRD) 59 L (>89) Glucose 145 H (70-100) mg/dL POC Whole Bld Glucose (70 - 100) mg/dL Calcium 8.2 L (8.5-10.3) mg/dL Total Bilirubin 1.5 H (0.2-1.0) mg/dL AST 24 (10-42) IU/L ALT 12 (10-60) IU/L Alkaline Phosphatase 62 (42-121) IU/L Ammonia (7-35) umol/L B-Natriuretic Peptide 198 H (5-100) pg/mL Total Protein 5.5 L (6.7-8.2) g/dL Albumin 2.5 L (3.2-5.5) g/dL Globulin 3.0 (2.1-4.2) g/dL Albumin/Globulin Ratio 0.8 L (1.0-2.2) 10/14/17 10/14/17 Range/Units 20:24 16:46 WBC (4.8-10.8) x10^3/uL RBC (4.70-6.10) 10^6/uL Hgb (14.0-18.0) g/dL Hct (42.0-52.0) % MCV (80.0-94.0) fL MCH (27.0-31.0) pg MCHC (32.0-36.0) g/dL RDW (12.0-15.0) % Plt Count (130-450) 10^3/uL MPV (7.4-11.4) fL Neut # (1.5-6.6) 10^3/uL Lymph # (1.5-3.5) 10^3/uL [place] # (0.0-1.0) 10^3/uL Eos # (0.0-0.7) 10^3/uL Baso # (0.0-0.1) 10^3/uL Absolute Nucleated RBC x10^3/uL Nucleated RBC % /100WBC Manual Slide Review Platelet Estimate (NORMAL) Platelet Morphology (NORMAL) RBC Morph Micro Appear (NORMAL) Sodium (135-145) mmol/L Potassium (3.5-5.0) mmol/L Chloride (101-111) mmol/L Carbon Dioxide (21-32) mmol/L Anion Gap (6-13) BUN (6-20) mg/dL Creatinine (0.6-1.2) mg/dL Estimated GFR (MDRD) (>89) Glucose (70-100) mg/dL POC Whole Bld Glucose 230 H 208 H (70 - 100) mg/dL Calcium (8.5-10.3) mg/dL Total Bilirubin (0.2-1.0) mg/dL AST (10-42) IU/L ALT (10-60) IU/L Alkaline Phosphatase (42-121) IU/L Ammonia (7-35) umol/L B-Natriuretic Peptide (5-100) pg/mL Total Protein (6.7-8.2) g/dL Albumin (3.2-5.5) g/dL Globulin (2.1-4.2) g/dL Albumin/Globulin Ratio (1.0-2.2) - Diagnostic Imaging Diagnostic Imaging Results: positive: Prelim report reviewed, Final report reviewed Diagnostic Imaging Comments: Chest x-ray on admission: 1-view: FINDINGS: Lungs/Pleura: Elevated right hemidiaphragm. The visualized lungs are otherwise clear. No pleural effusion or pneumothorax. Mediastinum: Within exam limitations, the cardiomediastinal contour is normal. Other: None. IMPRESSION: Elevated right hemidiaphragm otherwise unremarkable portable chest radiograph. Assessment/Plan - Problem List (1) Hepatic encephalopathy Impression: Patient was very confused upon presentation to ED. This has somewhat improved, but Perry was struggling with word finding, mild comprehension and one word answers. Although he requested to return home, he lacked the ability to understand his medical condition and the stage of his disease. Plan: Continue current treatment of lactulose PO TID as at home. Ammonia levels, electrolytes checked daily. (2) Alcohol dependence Impression: Patient has a very, tympanic, rounded, distended abdomen. He is slightly jaundiced. Per family, he had a paracentesis in mid-August, and again after the first of the year. We are now about 2 weeks from the last tap. Patient admits to life-long ETOH dependence, and states that he most recently quit on . A parencentesis was completed at the bedside by Dr. Crouch, General surgery and 7L was drained off. Plan: Continue cessation. 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 Metastatic sites were brain and mediastinal chest. Official Hospice referral made and contact was made with SERGEY Cam who is a hospice nurse. A palliative care consult may be considered it placement would require no Hospice involvement for the possibility of improvement. Plan: Patient states he is interested in Hospice care, although wants to remain a full code. (4) Alcoholic cirrhosis of liver with ascites Impression: Patient has a very, tympanic, rounded, distended abdomen. He is slightly jaundiced. Per family, he had a paracentesis in mid-August, and again after the first of the year. We are now about 2 weeks from the last tap. Patient admits to life-long ETOH dependence, and states that he most recently quit on . Patient is profoundly 3rd-spaced all over his body. He has pitting edema in all extremities and over his torso and back. A parencentesis was completed at the bedside by Dr. Crouch, General surgery and 7L was drained off on 10/14/17. Albumin x1 IV was given. Today all extremities appear much less edematous, but his abdomen is enlarged again. Drain site was on LLQ and continues to weep. May consider an ostomy device if this continues. Plan: Continue aggressive diuretic use and monitor.
[2017-10-15] MEDS ORDERED: LIDOCAINE 2% URO-JET 5 ML SYRINGE UR PRN (18:11)
[2017-10-15] MEDS: clonazePAM 0.5 MG TABLET PO SCH (20:45)
[2017-10-15] MEDS: traZODone 50 MG TABLET PO SCH (20:45)
[2017-10-15] MEDS: INSULIN GLARGINE 300 UNIT/3 ML PEN SUBQ SCH (20:48)
[2017-10-16] MEDS: SODIUM CHLORIDE FLUSH 0.9% 10 ML SYRINGE IVP SCH ×3 (05:20→21:58)
[2017-10-16] MEDS: LACTULOSE 10 GM /15 ML UDC PO SCH ×3 (05:20→21:57)
[2017-10-16 05:49] LABS: BASOPHILS % (AUTO) 0.7 %; EOSINOPHILS # (AUTO) 0.1 10^3/uL (0.0-0.7); HGB - HEMOGLOBIN 8.1 g/dL (14.0-18.0); LYMPHOCYTES # (AUTO) 0.6 10^3/uL (1.5-3.5); LYMPHOCYTES % (AUTO) 14.5 %; MONOCYTES # (AUTO) 0.5 10^3/uL (0.0-1.0); NEUTROPHILS # (AUTO) 2.9 10^3/uL (1.5-6.6); NEUTROPHILS % (AUTO) 69.8 %; RED CELL DISTRIBUTION WIDTH 20.4 % (12.0-15.0); WHITE BLOOD COUNT 4.2 x10^3/uL (4.8-10.8)
[2017-10-16 05:50] LABS: INR 1.3 (0.8-1.2); MEAN CORPUSCULAR HEMOGLOBIN 19.9 pg (27.0-31.0); MEAN CORPUSCULAR HGB CONC 29.7 g/dL (32.0-36.0); MEAN CORPUSCULAR VOLUME 67.1 fL (80.0-94.0); PLT - PLATELET COUNT 58 10^3/uL (130-450); PT - PROTHROMBIN TIME 14.8 secs (9.9-12.6); RED BLOOD COUNT 4.05 10^6/uL (4.70-6.10)
[2017-10-16 05:57] LABS: ALBUMIN 2.4 g/dL (3.2-5.5); ALBUMIN/GLOBULIN RATIO 0.8 (1.0-2.2); BILIRUBIN,TOTAL 1.4 mg/dL (0.2-1.0); CALCIUM 8.2 mg/dL (8.5-10.3); CREATININE 1.1 mg/dL (0.6-1.2); TOTAL PROTEIN 5.6 g/dL (6.7-8.2)
[2017-10-16] MEDS: PANTOPRAZOLE 40 MG TABLET PO SCH (06:19)
[2017-10-16 06:22] LABS: PLATELET ESTIMATE, MANUAL DECREASED (<130,000) (NORMAL); PLATELET MORPHOLOGY 1+ GIANT PLATELETS (NORMAL)
--- NOTE | 2017-10-16 08:30 | PROVIDER PROGRESS NOTE ---
Subjective - Prog Note Date Prog Note Date: 10/16/17 Prog Note Time: 08:29 - Subjective Pt reports feeling: No change Current Medications - Current Medications Current Medications: Active Medications Clonazepam (Klonopin) 1 mg PO BID COUNT INCLUDES THE [facility] Last Admin: 10/15/17 20:45 Dose: 1 mg Furosemide (Lasix Inj 100mg Vial) 80 mg IVP DAILY COUNT INCLUDES THE [facility] Last Admin: 10/15/17 08:30 Dose: 80 mg Ibuprofen (Motrin) 600 mg PO Q6HR PRN PRN Reason: Pain 1 to 4 Insulin Aspart (Novolog) 1 - 5 unit SUBQ 0800,1200,1700,2100 COUNT INCLUDES THE [facility] PRN Reason: Protocol Last Admin: 10/15/17 20:47 Dose: 3 unit Insulin Glargine (Lantus Solostar) 20 unit SUBQ QPM COUNT INCLUDES THE [facility] Last Admin: 10/15/17 20:48 Dose: 20 unit Lactulose (Enulose) 10 gm PO TID COUNT INCLUDES THE [facility] Last Admin: 10/16/17 05:20 Dose: 10 gm Metoprolol Tartrate (Lopressor) 25 mg PO BID COUNT INCLUDES THE [facility] Ondansetron HCl (Zofran Inj) 4 mg IVP Q6HR PRN PRN Reason: Nausea / Vomiting Ondansetron HCl (Zofran Odt) 4 mg TL Q6HR PRN PRN Reason: Nausea / Vomiting Pantoprazole Sodium (Protonix) 40 mg PO QDAC COUNT INCLUDES THE [facility] Last Admin: 10/16/17 06:19 Dose: 40 mg Polyethylene Glycol (Miralax) 17 gm PO DAILY COUNT INCLUDES THE [facility] Last Admin: 10/15/17 08:00 Dose: Not Given Potassium Chloride (K-Dur) 40 meq PO BIDWM COUNT INCLUDES THE [facility] Last Admin: 10/15/17 17:11 Dose: 40 meq Sertraline HCl (Zoloft) 100 mg PO DAILY COUNT INCLUDES THE [facility] Sodium Chloride (Normal Saline Flush 0.9%) 10 ml IVP PRN PRN PRN Reason: NEEDED PER PROVIDER ORDERS Last Admin: 10/15/17 08:30 Dose: 10 ml Sodium Chloride (Normal Saline Flush 0.9%) 10 ml IVP Q8HR COUNT INCLUDES THE [facility] Last Admin: 10/16/17 05:20 Dose: 10 ml Spironolactone (Aldactone) 25 mg PO DAILY COUNT INCLUDES THE [facility] Last Admin: 10/15/17 10:14 Dose: 25 mg Trazodone HCl (Desyrel) 100 mg PO QPM ASHOK Last Admin: 10/15/17 20:45 Dose: 100 mg Furosemide [Lasix] 40 mg PO BID 10/13/17 Glipizide [Glipizide ER] 5 mg PO DAILYWM 10/13/17 Lactulose 15 ml PO TID 10/13/17 Metoprolol Tartrate 25 mg PO BID 10/13/17 Omeprazole 40 mg PO QDAC 10/13/17 Pravastatin Sodium [Pravachol] 20 mg PO QPM 10/13/17 Sertraline HCl [Zoloft] 100 mg PO DAILY 10/13/17 Sitagliptin Phosphate [Januvia] 25 mg PO DAILY 10/13/17 Tamsulosin [Flomax] 0.4 mg PO DAILY 10/13/17 clonazePAM [Clonazepam] 1 mg PO BID 10/13/17 Objective - Vital Signs/Intake & Output Reviewed Vital Signs: Yes Vital Signs: Vital Signs x48h Temp Pulse Resp BP Pulse Ox 10/16/17 05:34 36.6 C 78 21 140/67 H 94 Intake & Output: Intake & Output 10/13/17 10/14/17 10/15/17 10/16/17 23:59 23:59 23:59 23:59 Intake Total 120 2210 1340 210 Output Total 501 2350 1375 Balance -381 -140 -35 210 - Lab Results Fish Bones: 10/16/17 05:39 10/16/17 05:39 Other Labs: Lab Results x24hrs 10/16/17 10/16/17 10/16/17 Range/Units 07:25 05:39 05:39 WBC (4.8-10.8) x10^3/uL RBC (4.70-6.10) 10^6/uL Hgb (14.0-18.0) g/dL Hct (42.0-52.0) % MCV (80.0-94.0) fL MCH (27.0-31.0) pg MCHC (32.0-36.0) g/dL RDW (12.0-15.0) % Plt Count (130-450) 10^3/uL MPV (7.4-11.4) fL Neut # (1.5-6.6) 10^3/uL Lymph # (1.5-3.5) 10^3/uL [place] # (0.0-1.0) 10^3/uL Eos # (0.0-0.7) 10^3/uL Baso # (0.0-0.1) 10^3/uL Absolute Nucleated RBC x10^3/uL Nucleated RBC % /100WBC Manual Slide Review Platelet Estimate (NORMAL) Platelet Morphology (NORMAL) RBC Morph Micro Appear (NORMAL) PT 14.8 H (9.9-12.6) secs INR 1.3 H (0.8-1.2) APTT 30.8 (24.9-33.3) secs Sodium (135-145) mmol/L Potassium (3.5-5.0) mmol/L Chloride (101-111) mmol/L Carbon Dioxide (21-32) mmol/L Anion Gap (6-13) BUN (6-20) mg/dL Creatinine (0.6-1.2) mg/dL Estimated GFR (MDRD) (>89) Glucose (70-100) mg/dL POC Whole Bld Glucose 145 H (70 - 100) mg/dL Calcium (8.5-10.3) mg/dL Total Bilirubin (0.2-1.0) mg/dL AST (10-42) IU/L ALT (10-60) IU/L Alkaline Phosphatase (42-121) IU/L Ammonia (7-35) umol/L B-Natriuretic Peptide 196 H (5-100) pg/mL Total Protein (6.7-8.2) g/dL Albumin (3.2-5.5) g/dL Globulin (2.1-4.2) g/dL Albumin/Globulin Ratio (1.0-2.2) 10/16/17 10/16/17 10/16/17 Range/Units 05:39 05:39 05:39 WBC 4.2 L (4.8-10.8) x10^3/uL RBC 4.05 L (4.70-6.10) 10^6/uL Hgb 8.1 L (14.0-18.0) g/dL Hct 27.2 L (42.0-52.0) % MCV 67.1 L (80.0-94.0) fL MCH 19.9 L (27.0-31.0) pg MCHC 29.7 L (32.0-36.0) g/dL RDW 20.4 H (12.0-15.0) % Plt Count 58 L (130-450) 10^3/uL MPV 9.0 (7.4-11.4) fL Neut # 2.9 (1.5-6.6) 10^3/uL Lymph # 0.6 L (1.5-3.5) 10^3/uL [place] # 0.5 (0.0-1.0) 10^3/uL Eos # 0.1 (0.0-0.7) 10^3/uL Baso # 0.0 (0.0-0.1) 10^3/uL Absolute Nucleated RBC 0.04 x10^3/uL Nucleated RBC % 0.8 /100WBC Manual Slide Review Indicated Platelet Estimate DECREASED (<130,000) (NORMAL) Platelet Morphology 1+ GIANT PLATELETS (NORMAL) RBC Morph Micro Appear 1+ BASO STIPPLING (NORMAL) PT (9.9-12.6) secs INR (0.8-1.2) APTT (24.9-33.3) secs Sodium 136 (135-145) mmol/L Potassium 3.6 (3.5-5.0) mmol/L Chloride 100 L (101-111) mmol/L Carbon Dioxide 28 (21-32) mmol/L Anion Gap 8.0 (6-13) BUN 25 H (6-20) mg/dL Creatinine 1.1 (0.6-1.2) mg/dL Estimated GFR (MDRD) 65 L (>89) Glucose 143 H (70-100) mg/dL POC Whole Bld Glucose (70 - 100) mg/dL Calcium 8.2 L (8.5-10.3) mg/dL Total Bilirubin 1.4 H (0.2-1.0) mg/dL AST 21 (10-42) IU/L ALT 13 (10-60) IU/L Alkaline Phosphatase 63 (42-121) IU/L Ammonia 56.6 H (7-35) umol/L B-Natriuretic Peptide (5-100) pg/mL Total Protein 5.6 L (6.7-8.2) g/dL Albumin 2.4 L (3.2-5.5) g/dL Globulin 3.2 (2.1-4.2) g/dL Albumin/Globulin Ratio 0.8 L (1.0-2.2) 10/15/17 10/15/17 10/15/17 Range/Units 20:42 16:58 11:12 WBC (4.8-10.8) x10^3/uL RBC (4.70-6.10) 10^6/uL Hgb (14.0-18.0) g/dL Hct (42.0-52.0) % MCV (80.0-94.0) fL MCH (27.0-31.0) pg MCHC (32.0-36.0) g/dL RDW (12.0-15.0) % Plt Count (130-450) 10^3/uL MPV (7.4-11.4) fL Neut # (1.5-6.6) 10^3/uL Lymph # (1.5-3.5) 10^3/uL [place] # (0.0-1.0) 10^3/uL Eos # (0.0-0.7) 10^3/uL Baso # (0.0-0.1) 10^3/uL Absolute Nucleated RBC x10^3/uL Nucleated RBC % /100WBC Manual Slide Review Platelet Estimate (NORMAL) Platelet Morphology (NORMAL) RBC Morph Micro Appear (NORMAL) PT (9.9-12.6) secs INR (0.8-1.2) APTT (24.9-33.3) secs Sodium (135-145) mmol/L Potassium (3.5-5.0) mmol/L Chloride (101-111) mmol/L Carbon Dioxide (21-32) mmol/L Anion Gap (6-13) BUN (6-20) mg/dL Creatinine (0.6-1.2) mg/dL Estimated GFR (MDRD) (>89) Glucose (70-100) mg/dL POC Whole Bld Glucose 190 H 158 H 229 H (70 - 100) mg/dL Calcium (8.5-10.3) mg/dL Total Bilirubin (0.2-1.0) mg/dL AST (10-42) IU/L ALT (10-60) IU/L Alkaline Phosphatase (42-121) IU/L Ammonia (7-35) umol/L B-Natriuretic Peptide (5-100) pg/mL Total Protein (6.7-8.2) g/dL Albumin (3.2-5.5) g/dL Globulin (2.1-4.2) g/dL Albumin/Globulin Ratio (1.0-2.2) 10/15/17 10/15/17 10/15/17 Range/Units 06:40 06:40 06:40 WBC 5.6 (4.8-10.8) x10^3/uL RBC 3.95 L (4.70-6.10) 10^6/uL Hgb 8.0 L (14.0-18.0) g/dL Hct 26.2 L (42.0-52.0) % MCV 66.3 L (80.0-94.0) fL MCH 20.3 L (27.0-31.0) pg MCHC 30.6 L (32.0-36.0) g/dL RDW 20.6 H (12.0-15.0) % Plt Count 42 L (130-450) 10^3/uL MPV 8.9 (7.4-11.4) fL Neut # 4.2 (1.5-6.6) 10^3/uL Lymph # 0.6 L (1.5-3.5) 10^3/uL [place] # 0.7 (0.0-1.0) 10^3/uL Eos # 0.1 (0.0-0.7) 10^3/uL Baso # 0.0 (0.0-0.1) 10^3/uL Absolute Nucleated RBC 0.01 x10^3/uL Nucleated RBC % 0.1 /100WBC Manual Slide Review Indicated Platelet Estimate DECREASED (<130,000) (NORMAL) Platelet Morphology 1+ LARGE PLATELETS (NORMAL) RBC Morph Micro Appear 1+ TARGET CELLS (NORMAL) PT (9.9-12.6) secs INR (0.8-1.2) APTT (24.9-33.3) secs Sodium 138 (135-145) mmol/L Potassium 3.2 L (3.5-5.0) mmol/L Chloride 100 L (101-111) mmol/L Carbon Dioxide 27 (21-32) mmol/L Anion Gap 11.0 (6-13) BUN 26 H (6-20) mg/dL Creatinine 1.2 (0.6-1.2) mg/dL Estimated GFR (MDRD) 59 L (>89) Glucose 145 H (70-100) mg/dL POC Whole Bld Glucose (70 - 100) mg/dL Calcium 8.2 L (8.5-10.3) mg/dL Total Bilirubin 1.5 H (0.2-1.0) mg/dL AST 24 (10-42) IU/L ALT 12 (10-60) IU/L Alkaline Phosphatase 62 (42-121) IU/L Ammonia (7-35) umol/L B-Natriuretic Peptide 198 H (5-100) pg/mL Total Protein 5.5 L (6.7-8.2) g/dL Albumin 2.5 L (3.2-5.5) g/dL Globulin 3.0 (2.1-4.2) g/dL Albumin/Globulin Ratio 0.8 L (1.0-2.2) Assessment/Plan - Problem List (2) Alcohol dependence Qualifiers: Substance use status: in remission Qualified Code(s): F10.21 - Alcohol dependence, in remission
[2017-10-16] MEDS: SERTRALINE 50 MG TABLET PO SCH (10:26)
[2017-10-16] MEDS: POLYETHYLENE GLYCOL 3350 17 GM PACKET PO SCH (10:27)
[2017-10-16] MEDS: clonazePAM 0.5 MG TABLET PO SCH ×2 (10:27→20:10)
[2017-10-16] MEDS: METOPROLOL TARTRATE 25 MG TABLET PO SCH ×2 (10:27→20:11)
[2017-10-16] MEDS: SODIUM CHLORIDE FLUSH 0.9% 10 ML SYRINGE IVP PRN (10:27)
[2017-10-16] MEDS: FUROSEMIDE 100 MG/10 ML VIAL IVP SCH (10:27)
[2017-10-16] MEDS: SPIRONOLACTONE 25 MG TABLET PO SCH (10:27)
[2017-10-16] MEDS: POTASSIUM CHLORIDE 20 MEQ TABLET PO SCH ×2 (10:27→17:06)
[2017-10-16] MEDS: INSULIN ASPART 300 UNIT/3 ML PEN SUBQ SCH ×4 (10:30→20:32)
--- NOTE | 2017-10-16 16:09 | Discharge Plan ---
"Discharge Plan for SNF / PRISON - DC Plan and Transition Orders Disposition: 03 SNF DC/Xfer Condition: Good SNF Transition Orders: Admit to: Care Age of Ja under the care of Bere Del Castillo. Discharge Diagnosis: metastatic melanoma, hepatic encephalopathy, alcoholic cirrhosis of liver with ascites, DM type 2. Medicare Certification: I certify that Post Hospital assisted care is medically necessary on a continuing basis for any of the conditions for which she/he is receiving care during hospitalization. Notify PCP of admission and forward orders to primary provider for signature. Weight on admission and weekly. Call PCP immediately if weight increases by 10 pounds or if patient develops dyspnea, chest pain/tightness or edema. House Bowel Program: Yes If no BM after 2 days, nurse may give M.O.M. 30ml PO PRN and /or ducolax Supp 1 MT and /or OLVIN 250mg P.O., and/or senna 1-2 tabs PO. On day 3 nurse may give repeat above order until residents constipation is resolved. Immunizations:Annual Influenza Vaccine: yes.(between May 27 and December 24.) Unless allergy or already given Two-Step PPD: yes per [facility] 248-235 or appropriate documentation of approved exceptions Treatments & Other Orders: Rehabilitation for weakness, consider hospice care if no improvement. Give lactulose TID. PT/OT/speech evaluation. Oxygen Orders: 1-4L nasal cannula to keep oxygen greater than 90%. Lab Tests or X-Rays Orders: Check amonia, CMP for worsening ascites. Orthopedic Orders: none. Medications: PLEASE REFER TO THE DISCHARGE MEDICATION LIST. Insulin Orders? YES Diagnosis: Diabetes Initiate hypo and hyperglycemia protocols for BG <70 and BG >375. May check BG prn for signs/symptoms of dysglycemia. Frequency of BG checks: AC HS. Basal Insulin: Lantus 20 units every PM; inject subq as follows: Correction Insulin: - Select the type of insulin below, SLIDING SCALE with meals. Choose: Novolog 100 units /ml insulin inject subq per orders indicate below LOW DOSE XX MODERATE DOSE MODERATE/HIGH DOSE HIGH DOSE GB UNITS GB UNITS GB UNITS GB UNITS 61-140 0 UNITS 61-140 0 UNITS 61-140 0 UNITS 61-140 0 UNITS 141-175 1 UNITS 141-175 1 UNITS 141-175 2 UNITS 141-175 3 UNITS 176-225 2 UNITS 176-225 3 UNITS 176-225 4 UNITS 176-225 5 UNITS 226-275 3 UNITS 226-275 5 UNITS 226-275 6 UNITS 226-275 7 UNITS 276-325 4 UNITS 276-325 7 UNITS 276-325 8 UNITS 276-325 9 UNITS 326-375 5 UNITS 326-375 9 UNITS 326-375 10 UNITS 326-375 11 UNITS >375 CONTACT MD >375 CONTACT MD >375 CONTACT MD >375 CONTACT MD Custom Dosing: Choose: Novolog 100 units/ml Insulin inject subq as follows: GB Units 61-140 Units 141-175 Units 176-225 Units 226-275 Units 276-325 Units 326-375 Units >375 Contact MD Allergies and Adverse Reactions: Allergies Allergy/AdvReac Type Severity Reaction Status Date / Time No Known Drug Allergies Allergy Verified 10/13/17 15:47 - Medications New Prescriptions: clonazePAM [Clonazepam] 1 mg PO BID #60 tablet Furosemide [Lasix] 40 mg PO BID #60 tablet Insulin Aspart [NovoLOG] 1 - 5 unit SUBQ 0800,1200,1700,2100 #1 pen Insulin Glargine [Lantus Solostar] 20 unit SUBQ QPM #1 pen Lactulose 15 ml PO TID #90 bottle Metoprolol Tartrate 25 mg PO BID #60 tablet Sertraline HCl [Zoloft] 100 mg PO DAILY #30 tablet Spironolactone [Aldactone] 25 mg PO BID #60 tablet Tamsulosin [Flomax] 0.4 mg PO DAILY #30 capsule traZODone [Desyrel] 100 mg PO QPM #30 tablet - Diet Type: No added salt Texture: Regular May have monthly special meal: Yes - Therapies | Activity Therapy: Evaluation | Treat if indicated: Speech, PT, OT, Swallowing / ST Rehabilitation Potential: Maximize functional status, Maintain present ADL Functional Activity: Activity as Tolerated Weight Bearing: Full Weight Assistance Devices: Walker"
--- NOTE | 2017-10-16 16:34 | DISCHARGE SUMMARY ---
"Discharge Summary Admit Date: 10/13/17 Discharge Date: 10/16/17 Discharging Provider: JEANIE Torrez Primary Care Provider: Bere Del Castillo Code Status: Attempt Resuscitation Condition at Discharge: Good Discharge Disposition: 03 SNF DC/Xfer Discharge Facility Name: [facility] - DIAGNOSES Admission Diagnoses: Unspecified cirrhosis of liver (K74.60) Hepatic failure, unspecified without coma (K72.90) Multiple myeloma not having achieved remission (C90.00) Alcohol dependence, uncomplicated (F10.20) Discharge Diagnoses with Status of Each Condition: Hepatic encephalopathy (K72.90) Ongoing, improved mental status. Alcohol dependence (F10.20) resolved, patient quit 07/01/17. Metastatic melanoma (C79.9) ongoing, [place] [facility] [place] Alfred. Alcoholic cirrhosis of liver with ascites (K70.31) ongoing, paracentesis out patient for symptom management. - HPI History of Present Illness: Gorge Jones is an ill appearing 76-year old white male with a past medical history of metastatic melanoma (initial dx ~2 years ago) to the brain and chest , post gamma knife radiation, alcoholic cirrhosis, alcoholism (quit 07/01/2017), colon cancer, mengioma, pancytopenia, pulmonary nodules/lesions, thrombocytopenia, hypertension, anxiety, depression, and diabetes mellitus type 2 (controlled with oral agents). He presented to the ED with increased confusion and weakness. He and his have just moved in with his daughter who lives here in [place] from [place] due to patient's progressive debilitated state and frequent falls. He received 2 previous paracenteses in mid-August and the latest one just after the first of the year. The patient's daughter works outside the home, which leaves her mother and father alone all day, so daughter is requesting placement. Patient will be admitted for further treatment of ascites, anasarca, and placement with Hospice care. Patient request to take all life saving measures, and to remain a FULL code. - CONSULTS | PROCEDURES Consultations: General surgery, Dr. Marek Crouch Procedures: Paracentesis on 10/14/17 at bedside with local anesthetic. No complications. ~7 +L taken. - HOSPITAL COURSE Hospital Course: The following problems/diagnoses were prevalent during this hospital stay: Hepatic encephalopathy: Patient was very confused upon presentation to ED. This has improved gradually, but Perry remains struggling with word finding, mild comprehension and one word answers at times. Although he requested to return home, he lacked the ability to understand his medical condition and the stage of his disease. Ammonia level at the time of admission was 119, and has decreased and was noted to be mildly elevated at 56.6 on 10/16/17. Patient has continued with his current treatment of lactulose PO TID as at home. Alcohol dependence: Patient had a very, tympanic, rounded, distended abdomen upon admission that has remained large, but his extremity edema has drastically lessened. He is slightly jaundiced. Per family, he had a paracentesis in mid- August, and again after the first of the year. At the time of admission, he was about 2 weeks from the last tap. Patient admits to life-long ETOH dependence, and states that he most recently quit on 07/01/2017. A parencentesis was completed at the bedside by Dr. Crouch, General surgery and 7L was drained off on 10/14/17. Patient continues with cessation. Metastatic melenoma: Patient was first diagnosed ~2 years ago and had a lesion removed from his back. Metastatic sites were brain and mediastinal chest. Official Hospice referral made and contact was made with SERGEY Cam who is a hospice nurse. If the patient is not benefiting from rehab, Hospice will become involved, which is currently on hold. Patient states he is interested in Hospice care, although wants to remain a full code. Alcoholic cirrhosis of liver with ascites: Patient had a very, tympanic, rounded, distended abdomen on admission that has slightly improved. He remains jaundiced. Patient admits to life-long ETOH dependence, and states that he most recently quit on 07/01/2017. Patient was profoundly 3rd-spaced all over his body, but with the use of lasix/spironolactone, this has improved. A parencentesis was completed on 10/14/17 without complications at the bedside by Dr. Crouch, General surgery and 7+ liters was drained off. Albumin x1 IV was given. Drain site was on LLQ and continues to weep, but improved since the time of the procedure. Patient was continued on aggressive diuretic therapy and lactulose, which the preferred treatment. To prevent further hepatic injury, patient's statin, and oral hyperglycemics have been discontinued. Patient will be continued on a low-dose SSI with Lantus (long acting coverage). Disposition: Patient was transferred in stable condition to [facility] for rehab. A call was made to Hospice to hold the referral that was made until it is determined that the patient is appropriate. He remains a FULL code per patient and family discussion. A call was made to Dr. Marek Crouch, general surgery to talk about the possibility of one more paracentesis before discharge. Compared to the time of admission, patient does not demonstrate an obvious need for an additional draining. Dr. Crouch suggests to use diagnostic imaging department for further palliative drains in the future. Finally, a call was made to Dr. Monet, medical massage therapist of [facility] to review case and confirm transfer. - ALLERGIES Allergies/Adverse Reactions: Allergies Allergy/AdvReac Type Severity Reaction Status Date / Time No Known Drug Allergies Allergy Verified 10/13/17 15:47 - MEDICATIONS Home Medications: Ambulatory Orders Medication Instructions Recorded Confirmed Furosemide [Lasix] 40 mg PO BID #60 tablet 10/16/17 Insulin Aspart [NovoLOG] 1 - 5 unit SUBQ 10/16/17 0800,1200,1700,2100 #1 pen Insulin Glargine [Lantus Solostar] 20 unit SUBQ QPM #1 pen 10/16/17 Lactulose 15 ml PO TID #90 bottle 10/16/17 Metoprolol Tartrate 25 mg PO BID #60 tablet 10/16/17 Sertraline HCl [Zoloft] 100 mg PO DAILY #30 tablet 10/16/17 Spironolactone [Aldactone] 25 mg PO BID #60 tablet 10/16/17 Tamsulosin [Flomax] 0.4 mg PO DAILY #30 capsule 10/16/17 clonazePAM [Clonazepam] 1 mg PO BID #60 tablet 10/16/17 traZODone [Desyrel] 100 mg PO QPM #30 tablet 10/16/17 - PHYSICAL EXAM AT DISCHARGE General Appearance: positive: No acute distress, Alert, Anxious Eyes Bilateral: positive: Normal inspection ENT: positive: ENT inspection nml, Pharynx nml, Dry mucous membranes Neck: positive: Thyroid nml, Trachea midline, Stiff neck Respiratory: positive: Chest non-tender, No respiratory distress, Other ( crackles) Cardiovascular: positive: Irregularly irregular, Systolic murmur, Gallop/S4 Peripheral Pulses: positive: 1+ Abdomen: positive: Tenderness, Hepatomegaly, Abnml bowel sounds Back: positive: Nml inspection Skin: positive: No rash, Warm, Dry, Pallor Extremities: positive: Non-tender, Full ROM, Pedal edema, Joint swelling, Other Neurologic/Psychiatric: positive: Disoriented to time, Weakness, Sensory loss, Depressed mood/affect Reflexes: Bicep (R): 1+, Bicep (L): 1+ - LABS Result Diagrams: 10/17/17 05:15 10/17/17 05:15 - DIAGNOSTIC IMAGING Diagnostic Imaging Results: Final report reviewed Diagnostic Imaging Results Comments: Chest x-ray 10/13/17: FINDINGS: Lungs/Pleura: Elevated right hemidiaphragm. The visualized lungs are otherwise clear. No pleural effusion or pneumothorax. Mediastinum: Within exam limitations, the cardiomediastinal contour is normal. Other: None. IMPRESSION: Elevated right hemidiaphragm otherwise unremarkable portable chest radiograph. - FOLLOW UP Follow Up: As per juan Sheth. - TIME SPENT Time Spent in Discharge (Minutes): 45"
--- NOTE | 2017-10-16 16:45 | PROVIDER PROGRESS NOTE ---
Subjective - Prog Note Date Prog Note Date: 10/16/17 Prog Note Time: 07:00 - Subjective Pt reports feeling: No change Subjective: Perry states that he feels ok today, but complaints about staff waking him up frequently at night. He denies SOB, chest pain, N/V or a new cough. He feels that his abdominal swelling is "normal". Current Medications - Current Medications Current Medications: Active Medications Clonazepam (Klonopin) 1 mg PO BID [facility] Last Admin: 10/16/17 10:27 Dose: 1 mg Furosemide (Lasix Inj 100mg Vial) 80 mg IVP DAILY [facility] Last Admin: 10/16/17 10:27 Dose: 80 mg Ibuprofen (Motrin) 600 mg PO Q6HR PRN PRN Reason: Pain 1 to 4 Insulin Aspart (Novolog) 1 - 5 unit SUBQ 0800,1200,1700,2100 [facility] PRN Reason: Protocol Last Admin: 10/16/17 11:51 Dose: 3 unit Insulin Glargine (Lantus Solostar) 20 unit SUBQ QPM [facility] Last Admin: 10/15/17 20:48 Dose: 20 unit Lactulose (Enulose) 10 gm PO TID [facility] Last Admin: 10/16/17 14:02 Dose: 10 gm Metoprolol Tartrate (Lopressor) 25 mg PO BID [facility] Last Admin: 10/16/17 10:27 Dose: 25 mg Ondansetron HCl (Zofran Inj) 4 mg IVP Q6HR PRN PRN Reason: Nausea / Vomiting Ondansetron HCl (Zofran Odt) 4 mg TL Q6HR PRN PRN Reason: Nausea / Vomiting Pantoprazole Sodium (Protonix) 40 mg PO QDAC [facility] Last Admin: 10/16/17 06:19 Dose: 40 mg Polyethylene Glycol (Miralax) 17 gm PO DAILY [facility] Last Admin: 10/16/17 10:27 Dose: 17 gm Potassium Chloride (K-Dur) 40 meq PO BIDWM [facility] Last Admin: 10/16/17 10:27 Dose: 40 meq Sertraline HCl (Zoloft) 100 mg PO DAILY [facility] Last Admin: 10/16/17 10:26 Dose: 100 mg Sodium Chloride (Normal Saline Flush 0.9%) 10 ml IVP PRN PRN PRN Reason: NEEDED PER PROVIDER ORDERS Last Admin: 10/16/17 10:27 Dose: 10 ml Sodium Chloride (Normal Saline Flush 0.9%) 10 ml IVP Q8HR [facility] Last Admin: 10/16/17 14:02 Dose: 10 ml Spironolactone (Aldactone) 25 mg PO DAILY [facility] Last Admin: 10/16/17 10:27 Dose: 25 mg Trazodone HCl (Desyrel) 100 mg PO QPM [facility] Last Admin: 10/15/17 20:45 Dose: 100 mg Objective - Vital Signs/Intake & Output Reviewed Vital Signs: Yes Vital Signs: Vital Signs x48h Temp Pulse Resp BP Pulse Ox 10/16/17 15:22 36.2 C L 67 18 109/48 L 95 10/16/17 10:29 36.4 C L 76 18 151/60 H 96 Intake & Output: Intake & Output 10/13/17 10/14/17 10/15/17 10/16/17 23:59 23:59 23:59 23:59 Intake Total 120 2210 1340 570 Output Total 501 2350 1375 Balance -381 -140 -35 570 - Objective General Appearance: positive: No acute distress, Alert, Lethargic Eyes Bilateral: positive: Normal inspection Eyes: OU Conjunctivae pale, OU Scleral icterus ENT: positive: ENT inspection nml, Pharynx nml, No signs of dehydration Neck: positive: Nml inspection, Thyroid nml, Stiff neck Respiratory: positive: Chest non-tender, No respiratory distress, Other ( crackles.) Cardiovascular: positive: Irregularly irregular, Systolic murmur, Gallop/S3, Decreased pulse(s) Peripheral Pulses: 1+ Radial (R), 1+ Radial (L) Abdomen: positive: Tenderness, Rebound, Hepatomegaly, Splenomegaly, Abnml bowel sounds Back: positive: Nml inspection Skin: positive: No rash, Warm, Dry, Pallor, Other (jaundice) Extremities: positive: Non-tender, Pedal edema, Calf tenderness Neurologic/Psychiatric: positive: Disoriented to time, Weakness, Sensory loss, Depressed mood/affect Reflexes: Bicep (R): 2+, Bicep (L): 2+ - Lab Results Fish Bones: 10/17/17 05:15 10/17/17 05:15 Other Labs: Lab Results x24hrs 10/16/17 10/16/17 10/16/17 Range/Units 16:09 11:42 07:25 WBC (4.8-10.8) x10^3/uL RBC (4.70-6.10) 10^6/uL Hgb (14.0-18.0) g/dL Hct (42.0-52.0) % MCV (80.0-94.0) fL MCH (27.0-31.0) pg MCHC (32.0-36.0) g/dL RDW (12.0-15.0) % Plt Count (130-450) 10^3/uL MPV (7.4-11.4) fL Neut # (1.5-6.6) 10^3/uL Lymph # (1.5-3.5) 10^3/uL Thayer # (0.0-1.0) 10^3/uL Eos # (0.0-0.7) 10^3/uL Baso # (0.0-0.1) 10^3/uL Absolute Nucleated RBC x10^3/uL Nucleated RBC % /100WBC Manual Slide Review Platelet Estimate (NORMAL) Platelet Morphology (NORMAL) RBC Morph Micro Appear (NORMAL) PT (9.9-12.6) secs INR (0.8-1.2) APTT (24.9-33.3) secs Sodium (135-145) mmol/L Potassium (3.5-5.0) mmol/L Chloride (101-111) mmol/L Carbon Dioxide (21-32) mmol/L Anion Gap (6-13) BUN (6-20) mg/dL Creatinine (0.6-1.2) mg/dL Estimated GFR (MDRD) (>89) Glucose (70-100) mg/dL POC Whole Bld Glucose 182 H 193 H 145 H (70 - 100) mg/dL Calcium (8.5-10.3) mg/dL Total Bilirubin (0.2-1.0) mg/dL AST (10-42) IU/L ALT (10-60) IU/L Alkaline Phosphatase (42-121) IU/L Ammonia (7-35) umol/L B-Natriuretic Peptide (5-100) pg/mL Total Protein (6.7-8.2) g/dL Albumin (3.2-5.5) g/dL Globulin (2.1-4.2) g/dL Albumin/Globulin Ratio (1.0-2.2) 10/16/17 10/16/17 10/16/17 Range/Units 05:39 05:39 05:39 WBC (4.8-10.8) x10^3/uL RBC (4.70-6.10) 10^6/uL Hgb (14.0-18.0) g/dL Hct (42.0-52.0) % MCV (80.0-94.0) fL MCH (27.0-31.0) pg MCHC (32.0-36.0) g/dL RDW (12.0-15.0) % Plt Count (130-450) 10^3/uL MPV (7.4-11.4) fL Neut # (1.5-6.6) 10^3/uL Lymph # (1.5-3.5) 10^3/uL Thayer # (0.0-1.0) 10^3/uL Eos # (0.0-0.7) 10^3/uL Baso # (0.0-0.1) 10^3/uL Absolute Nucleated RBC x10^3/uL Nucleated RBC % /100WBC Manual Slide Review Platelet Estimate (NORMAL) Platelet Morphology (NORMAL) RBC Morph Micro Appear (NORMAL) PT 14.8 H (9.9-12.6) secs INR 1.3 H (0.8-1.2) APTT 30.8 (24.9-33.3) secs Sodium 136 (135-145) mmol/L Potassium 3.6 (3.5-5.0) mmol/L Chloride 100 L (101-111) mmol/L Carbon Dioxide 28 (21-32) mmol/L Anion Gap 8.0 (6-13) BUN 25 H (6-20) mg/dL Creatinine 1.1 (0.6-1.2) mg/dL Estimated GFR (MDRD) 65 L (>89) Glucose 143 H (70-100) mg/dL POC Whole Bld Glucose (70 - 100) mg/dL Calcium 8.2 L (8.5-10.3) mg/dL Total Bilirubin 1.4 H (0.2-1.0) mg/dL AST 21 (10-42) IU/L ALT 13 (10-60) IU/L Alkaline Phosphatase 63 (42-121) IU/L Ammonia (7-35) umol/L B-Natriuretic Peptide 196 H (5-100) pg/mL Total Protein 5.6 L (6.7-8.2) g/dL Albumin 2.4 L (3.2-5.5) g/dL Globulin 3.2 (2.1-4.2) g/dL Albumin/Globulin Ratio 0.8 L (1.0-2.2) 10/16/17 10/16/17 10/15/17 Range/Units 05:39 05:39 20:42 WBC 4.2 L (4.8-10.8) x10^3/uL RBC 4.05 L (4.70-6.10) 10^6/uL Hgb 8.1 L (14.0-18.0) g/dL Hct 27.2 L (42.0-52.0) % MCV 67.1 L (80.0-94.0) fL MCH 19.9 L (27.0-31.0) pg MCHC 29.7 L (32.0-36.0) g/dL RDW 20.4 H (12.0-15.0) % Plt Count 58 L (130-450) 10^3/uL MPV 9.0 (7.4-11.4) fL Neut # 2.9 (1.5-6.6) 10^3/uL Lymph # 0.6 L (1.5-3.5) 10^3/uL Thayer # 0.5 (0.0-1.0) 10^3/uL Eos # 0.1 (0.0-0.7) 10^3/uL Baso # 0.0 (0.0-0.1) 10^3/uL Absolute Nucleated RBC 0.04 x10^3/uL Nucleated RBC % 0.8 /100WBC Manual Slide Review Indicated Platelet Estimate DECREASED (<130,000) (NORMAL) Platelet Morphology 1+ GIANT PLATELETS (NORMAL) RBC Morph Micro Appear 1+ BASO STIPPLING (NORMAL) PT (9.9-12.6) secs INR (0.8-1.2) APTT (24.9-33.3) secs Sodium (135-145) mmol/L Potassium (3.5-5.0) mmol/L Chloride (101-111) mmol/L Carbon Dioxide (21-32) mmol/L Anion Gap (6-13) BUN (6-20) mg/dL Creatinine (0.6-1.2) mg/dL Estimated GFR (MDRD) (>89) Glucose (70-100) mg/dL POC Whole Bld Glucose 190 H (70 - 100) mg/dL Calcium (8.5-10.3) mg/dL Total Bilirubin (0.2-1.0) mg/dL AST (10-42) IU/L ALT (10-60) IU/L Alkaline Phosphatase (42-121) IU/L Ammonia 56.6 H (7-35) umol/L B-Natriuretic Peptide (5-100) pg/mL Total Protein (6.7-8.2) g/dL Albumin (3.2-5.5) g/dL Globulin (2.1-4.2) g/dL Albumin/Globulin Ratio (1.0-2.2) 10/15/17 Range/Units 16:58 WBC (4.8-10.8) x10^3/uL RBC (4.70-6.10) 10^6/uL Hgb (14.0-18.0) g/dL Hct (42.0-52.0) % MCV (80.0-94.0) fL MCH (27.0-31.0) pg MCHC (32.0-36.0) g/dL RDW (12.0-15.0) % Plt Count (130-450) 10^3/uL MPV (7.4-11.4) fL Neut # (1.5-6.6) 10^3/uL Lymph # (1.5-3.5) 10^3/uL Thayer # (0.0-1.0) 10^3/uL Eos # (0.0-0.7) 10^3/uL Baso # (0.0-0.1) 10^3/uL Absolute Nucleated RBC x10^3/uL Nucleated RBC % /100WBC Manual Slide Review Platelet Estimate (NORMAL) Platelet Morphology (NORMAL) RBC Morph Micro Appear (NORMAL) PT (9.9-12.6) secs INR (0.8-1.2) APTT (24.9-33.3) secs Sodium (135-145) mmol/L Potassium (3.5-5.0) mmol/L Chloride (101-111) mmol/L Carbon Dioxide (21-32) mmol/L Anion Gap (6-13) BUN (6-20) mg/dL Creatinine (0.6-1.2) mg/dL Estimated GFR (MDRD) (>89) Glucose (70-100) mg/dL POC Whole Bld Glucose 158 H (70 - 100) mg/dL Calcium (8.5-10.3) mg/dL Total Bilirubin (0.2-1.0) mg/dL AST (10-42) IU/L ALT (10-60) IU/L Alkaline Phosphatase (42-121) IU/L Ammonia (7-35) umol/L B-Natriuretic Peptide (5-100) pg/mL Total Protein (6.7-8.2) g/dL Albumin (3.2-5.5) g/dL Globulin (2.1-4.2) g/dL Albumin/Globulin Ratio (1.0-2.2) - Diagnostic Imaging Diagnostic Imaging Results: positive: Final report reviewed Assessment/Plan - Problem List (1) Hepatic encephalopathy Impression: Patient was very confused upon presentation to ED. This has somewhat improved, but Perry was struggling with word finding, mild comprehension and one word answers. Although he requested to return home, he lacked the ability to understand his medical condition and the stage of his disease. Ammonia level today was mildly increased at 56.6. Plan: Continue current treatment of lactulose PO TID as at home. Ammonia levels, electrolytes checked daily. (2) Alcohol dependence Impression: Patient has a very, tympanic, rounded, distended abdomen. He is slightly jaundiced. Per family, he had a paracentesis in mid-August, and again after the first of the year. We are now about 2 weeks from the last tap. Patient admits to life-long ETOH dependence, and states that he most recently quit on . A parencentesis was completed at the bedside by Dr. Crouch, General surgery and 7L was drained off. Plan: Continue cessation. 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 Metastatic sites were brain and mediastinal chest. Official Hospice referral made and contact was made with SERGEY Cam who is a hospice nurse. A palliative care consult may be considered it placement would require no Hospice involvement for the possibility of improvement. Plan: Patient states he is interested in Hospice care, although wants to remain a full code. (4) Alcoholic cirrhosis of liver with ascites Impression: Patient has a very, tympanic, rounded, distended abdomen. He is slightly jaundiced. Per family, he had a paracentesis in mid-August, and again after the first of the year. We are now about 2 weeks from the last tap. Patient admits to life-long ETOH dependence, and states that he most recently quit on . Patient is profoundly 3rd-spaced all over his body. He has pitting edema in all extremities and over his torso and back. A parencentesis was completed at the bedside by Dr. Crouch, General surgery and 7L was drained off on 10/14/17. Albumin x1 IV was given. Today all extremities appear much less edematous, but his abdomen is enlarged again. Drain site was on LLQ and continues to weep. May consider an ostomy device if this continues. Plan: Continue aggressive diuretic use and monitor. Patient has had an extended stay due to senior care placement. He will be medically cleared today for discharge, although accepting facility will not be able to administer medications because they do not have a pharmacist on Sundays.
[2017-10-16] MEDS: traZODone 50 MG TABLET PO SCH (20:10)
[2017-10-16] MEDS: INSULIN GLARGINE 300 UNIT/3 ML PEN SUBQ SCH (20:34)
[2017-10-17] MEDS: LACTULOSE 10 GM /15 ML UDC PO SCH ×2 (05:07→13:36)
[2017-10-17] MEDS: SODIUM CHLORIDE FLUSH 0.9% 10 ML SYRINGE IVP SCH ×2 (05:07→13:36)
[2017-10-17 05:53] LABS: BASOPHILS % (AUTO) 0.3 %; EOSINOPHILS # (AUTO) 0.2 10^3/uL (0.0-0.7); EOSINOPHILS % (AUTO) 2.3 %; LYMPHOCYTES # (AUTO) 0.7 10^3/uL (1.5-3.5); MEAN CORPUSCULAR HEMOGLOBIN 19.9 pg (27.0-31.0); MEAN CORPUSCULAR HGB CONC 29.6 g/dL (32.0-36.0); MEAN CORPUSCULAR VOLUME 67.1 fL (80.0-94.0); MEAN PLATELET VOLUME 9.4 fL (7.4-11.4); MONOCYTES # (AUTO) 0.6 10^3/uL (0.0-1.0); MONOCYTES % (AUTO) 8.5 %; NEUTROPHILS # (AUTO) 5.8 10^3/uL (1.5-6.6); NEUTROPHILS % (AUTO) 79.9 %; PLT - PLATELET COUNT 56 10^3/uL (130-450); RED CELL DISTRIBUTION WIDTH 19.9 % (12.0-15.0); WHITE BLOOD COUNT 7.3 x10^3/uL (4.8-10.8)
[2017-10-17 06:10] LABS: INR 1.4 (0.8-1.2); PT - PROTHROMBIN TIME 15.4 secs (9.9-12.6)
[2017-10-17] MEDS: PANTOPRAZOLE 40 MG TABLET PO SCH (06:10)
[2017-10-17 06:17] LABS: ALBUMIN 2.5 g/dL (3.2-5.5); ALBUMIN/GLOBULIN RATIO 0.8 (1.0-2.2); BILIRUBIN,TOTAL 1.2 mg/dL (0.2-1.0); CALCIUM 8.1 mg/dL (8.5-10.3); CREATININE 1.2 mg/dL (0.6-1.2); TOTAL PROTEIN 5.5 g/dL (6.7-8.2)
--- NOTE | 2017-10-17 06:42 | PROCEDURE REPORT ---
DATE OF SERVICE: 10/14/2017 Physician: Willie Crouch MD DATE OF PROCEDURE: 10/14/2017 PREOPERATIVE DIAGNOSIS: Liver cirrhosis with ascites. POSTPROCEDURE DIAGNOSIS: Liver cirrhosis with ascites. PROCEDURE: Paracentesis. DESCRIPTION OF PROCEDURE: After informed consent was obtained from the patient. The patient's left lower quadrant was then prepped and draped in usual sterile fashion. An ultrasound had previously been used in order to assess the area and there was a significant amount of ascites in this region with the bowel well away from the abdominal wall. The skin was then injected with local anesthesia, 2 fingerbreadths medial and superior to the anterior superior iliac crest. A small incision was then made in the skin. The paracentesis catheter was then inserted in a Z fashion in order to try and cover the tract once the catheter was removed. Catheter was then inserted into the abdominal cavity after the needle that was used to insert it had entered the abdominal cavity. The needle was then withdrawn with the catheter then being intra-abdominally. Six liters of ascites was then drained from the patient. The catheter was then removed. A Band-Aid was then placed across the skin insertion site. There were no immediate complications. TD: 10/17/2017 07:40
[2017-10-17 07:03] LABS: PLATELET ESTIMATE, MANUAL DECREASED (<130,000) (NORMAL); PLATELET MORPHOLOGY NORMAL APPEARANCE (NORMAL)
[2017-10-17] MEDS: INSULIN ASPART 300 UNIT/3 ML PEN SUBQ SCH ×2 (07:42→12:06)
[2017-10-17 08:19] VITALS: BP 114/57
[2017-10-17] MEDS: FUROSEMIDE 100 MG/10 ML VIAL IVP SCH (08:41)
[2017-10-17] MEDS: SODIUM CHLORIDE FLUSH 0.9% 10 ML SYRINGE IVP PRN (08:42)
[2017-10-17] MEDS: clonazePAM 0.5 MG TABLET PO SCH (08:42)
[2017-10-17] MEDS: POTASSIUM CHLORIDE 20 MEQ TABLET PO SCH (08:43)
[2017-10-17] MEDS: SERTRALINE 50 MG TABLET PO SCH (08:44)
[2017-10-17] MEDS: SPIRONOLACTONE 25 MG TABLET PO SCH (08:44)
[2017-10-17] MEDS: POLYETHYLENE GLYCOL 3350 17 GM PACKET PO SCH (08:45)
[2017-10-17] MEDS: METOPROLOL TARTRATE 25 MG TABLET PO SCH (08:45)
== END 2017-10-17 14:00 | DRG 433 ==
LOC: ED 15:32 → MS2 17:06
PROVIDERS: ADMIT Nurse Practitioner; ATTEND Nurse Practitioner
PROC: 0W9G3ZZ Drainage of Peritoneal Cavity, Percutaneous Approach (ICD-10-PCS; principal; 2017-10-14)
DX: K70.40 Alcoholic hepatic failure without coma (principal); R60.9 Edema, unspecified; C43.9 Malignant melanoma of skin, unspecified; C78.1 Secondary malignant neoplasm of mediastinum; C79.31 Secondary malignant neoplasm of brain; K70.31 Alcoholic cirrhosis of liver with ascites; F10.21 Alcohol dependence, in remission; D69.6 Thrombocytopenia, unspecified; R60.1 Generalized edema; I10 Essential (primary) hypertension; F41.9 Anxiety disorder, unspecified; F32.9 Major depressive disorder, single episode, unspecified; E11.9 Type 2 diabetes mellitus without complications; K21.9 Gastro-esophageal reflux disease without esophagitis; R35.0 Frequency of micturition; E78.00 Pure hypercholesterolemia, unspecified; H54.7 Unspecified visual loss; Z96.652 Presence of left artificial knee joint; Z79.84 Long term (current) use of oral hypoglycemic drugs; Z79.899 Other long term (current) drug therapy; Z92.3 Personal history of irradiation; Z86.69 Personal history of other diseases of the nervous system and sense organs; Z85.038 Personal history of other malignant neoplasm of large intestine
CPT/HCPCS: 36415; 49083; 71045; 80053; 82140; 83036; 83605; 83690; 83735; 83880; 84100; 85025; 85610; 85730; 86850; 86900; 86901; 93005; 96374; 99283; 99284; 99285

== ENCOUNTER 2017-10-24 08:00 | Outpatient (CLI) | payer MEDICARE, OTHER ==
[2017-10-24 14:13] LABS: BASOPHILS # (AUTO) 0.1 10^3/uL (0.0-0.1); BASOPHILS % (AUTO) 0.8 %; EOSINOPHILS % (AUTO) 0.3 %; HGB - HEMOGLOBIN 7.8 g/dL (14.0-18.0); LYMPHOCYTES # (AUTO) 0.3 10^3/uL (1.5-3.5); LYMPHOCYTES % (AUTO) 3.4 %; MEAN CORPUSCULAR HEMOGLOBIN 19.7 pg (27.0-31.0); MEAN CORPUSCULAR HGB CONC 30.6 g/dL (32.0-36.0); MEAN CORPUSCULAR VOLUME 64.6 fL (80.0-94.0); MEAN PLATELET VOLUME 8.3 fL (7.4-11.4); MONOCYTES # (AUTO) 0.7 10^3/uL (0.0-1.0); MONOCYTES % (AUTO) 8.6 %; NEUTROPHILS # (AUTO) 6.6 10^3/uL (1.5-6.6); NEUTROPHILS % (AUTO) 86.9 %; PLT - PLATELET COUNT 84 10^3/uL (130-450); RED BLOOD COUNT 3.95 10^6/uL (4.70-6.10); RED CELL DISTRIBUTION WIDTH 20.7 % (12.0-15.0); WHITE BLOOD COUNT 7.6 x10^3/uL (4.8-10.8)
[2017-10-24 14:24] LABS: ALBUMIN 2.1 g/dL (3.2-5.5); ALBUMIN/GLOBULIN RATIO 0.7 (1.0-2.2); BILIRUBIN,TOTAL 1.8 mg/dL (0.2-1.0); CALCIUM 8.7 mg/dL (8.5-10.3); CREATININE 2.9 mg/dL (0.6-1.2); TOTAL PROTEIN 5.3 g/dL (6.7-8.2)
[2017-10-24 14:58] LABS: PLATELET ESTIMATE, MANUAL DECREASED (<130,000) (NORMAL); PLATELET MORPHOLOGY NORMAL APPEARANCE (NORMAL)
== END 2017-10-24 08:01 | disposition home or self-care (01) ==
LOC: LAB.R 08:00
DX: K70.31 Alcoholic cirrhosis of liver with ascites (principal)
CPT/HCPCS: 80053; 82140; 85025

== ENCOUNTER 2017-10-24 15:45 | Outpatient (CLI) | payer MEDICARE, OTHER | END 2017-10-24 15:46 | disposition critical access hospital (66) | LOC: EMS 15:45 | PROVIDERS: ATTEND Surgery | DX: R41.82 Altered mental status, unspecified (principal); R53.81 Other malaise; R09.89 Other specified symptoms and signs involving the circulatory and respiratory systems | CPT/HCPCS: A0425; A0427 ==

== ENCOUNTER 2017-10-24 15:52 | Inpatient (IN) | payer MEDICARE, OTHER ==
[2017-10-24] MEDS ORDERED: LACTULOSE 10 GM/15 ML BOTTLE PR STA (16:13)
[2017-10-24] MEDS ORDERED: LACTULOSE 10 GM /15 ML UDC PR STA (16:15)
--- NOTE | 2017-10-24 16:15 | ED Physician Documentation ---
History of Present Illness - Stated complaint Stated Complaint: DEC LOC - Chief complaint Chief Complaint: Neuro - History obtained from History obtained from: Family (), EMS - History of Present Illness Timing: Other (76-year-old gentleman admitted by me and discharge recently to a residential where he spent for the last week. He has metastatic melanoma and cirrhosis due to alcoholism. He has been obtunded for the last couple of days I guess and they did outpatient labs today showing prerenal insufficiency and an ammonia of 82.) Review of Systems Unable to obtain: Confused PD PAST MEDICAL HISTORY - Past Medical History Cardiovascular: Hypertension, High cholesterol, Arrhythmia Respiratory: Shortness of breath Neuro: Other Endocrine/Autoimmune: Type 2 diabetes GI: GERD, Cirrhosis : Frequency HEENT: Chronic vision loss Psych: Depression, Anxiety Musculoskeletal: Fatigue Derm: None - Past Surgical History Past Surgical History: Yes Ortho: Knee replacement Neuro: Gamma knife Derm: Skin cancer surgery - Present Medications Home Medications: Ambulatory Orders Medication Instructions Recorded Confirmed Furosemide [Lasix] 40 mg PO BID #60 tablet 10/16/17 Insulin Aspart [NovoLOG] 1 - 5 unit SUBQ 10/16/17 0800,1200,1700,2100 #1 pen Insulin Glargine [Lantus Solostar] 20 unit SUBQ QPM #1 pen 10/16/17 Lactulose 15 ml PO TID #90 bottle 10/16/17 Metoprolol Tartrate 25 mg PO BID #60 tablet 10/16/17 Sertraline HCl [Zoloft] 100 mg PO DAILY #30 tablet 10/16/17 Spironolactone [Aldactone] 25 mg PO BID #60 tablet 10/16/17 Tamsulosin [Flomax] 0.4 mg PO DAILY #30 capsule 10/16/17 clonazePAM [Clonazepam] 1 mg PO BID #60 tablet 10/16/17 traZODone [Desyrel] 100 mg PO QPM #30 tablet 10/16/17 - Allergies Allergies/Adverse Reactions: Allergies Allergy/AdvReac Type Severity Reaction Status Date / Time No Known Drug Allergies Allergy Verified 10/13/17 15:47 - Social History Does the pt smoke?: No Smoking Status: Never smoker Does the pt drink ETOH?: No Does the pt have substance abuse?: No - Immunizations Immunizations are current?: Yes - POLST Patient has POLST: No POLST Status: Full Code PD ED PE NORMAL - Vitals Vital signs reviewed: Yes - General General: Other (He opens his eyes to his name and can say his name is Gorge but is otherwise pretty delirious.) - HEENT HEENT: PERRL, EOMI, Other (Dry mucous membranes) - Neck Neck: Supple, no meningeal sign, No bony TTP - Cardiac Cardiac: RRR, No murmur - Respiratory Respiratory: No respiratory distress, Clear bilaterally - Abdomen Abdomen: Normal bowel sounds, Soft, Non tender - Extremities Extremities: No edema, No calf tenderness / cord - Neuro Eye Opening: To Voice Motor: Obeys Commands Verbal: Confused GCS Score: 13 Results - Vitals Vitals: Vital Signs - 24 hr 10/24/17 15:57 Temperature 36.7 C Heart Rate 75 Respiratory 24 Rate Blood Pressure 86/57 L O2 Saturation 100 Oxygen O2 Source [With Activity] Room air O2 Source Nasal cannula Oxygen Flow Rate 6 PD MEDICAL DECISION MAKING - ED course ED course: 76-year-old gentleman presents with recurrent hepatic encephalopathy, he is administered rectal lactulose because he is too obtunded to take it orally and will be admitted for further evaluation and treatment. Departure - Departure Disposition: 66 [facility] DC/Xfer Clinical Impression: Hepatic encephalopathy Condition: Serious
[2017-10-24] MEDS ORDERED: SODIUM CHLORIDE FLUSH 0.9% 10 ML SYRINGE IVP PRN (16:49)
[2017-10-24] MEDS ORDERED: PROCHLORPERAZINE 10 MG/2 ML VIAL IVP PRN (16:49)
[2017-10-24] MEDS ORDERED: ONDANSETRON 4 MG/2 ML VIAL IVP PRN (16:49)
[2017-10-24] MEDS ORDERED: rifAXIMin 550 MG TABLET PO SCH ×2 (17:00→18:00)
[2017-10-24] MEDS ORDERED: SODIUM CHLORIDE 0.9% 1,000 ML IV ONE (17:11)
--- NOTE | 2017-10-24 18:30 | HISTORY & PHYSICAL EXAMINATION ---
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 The patient was recently hospitalized for hepatic encephalopathy from 10/13/2017 to 2017 and then discharged to [facility] for rehabilitation. The patient was supposed to see hospice for referral on 10/25/2017 but while at [facility] he has began to develop increasing encephalopathy. According to the staff at [facility] the patient has been spitting up his lactulose and has not been taking it for the last several days and they believe this is what has led to his encephalopathy. The patient otherwise is not in any respiratory distress, he is not had any fevers or chills. The patient does not have any bloody or black stools. The patient is not been having any abdominal pain although he is quite distended in his abdomen secondary to ascites. The patient has not been having any nausea or vomiting and has not been having any recent diarrhea. On presentation to the emergency department the patient was afebrile and pulse rate was normal he was slightly hypotensive with a blood pressure of 86/57 and was tachypneic with a respiratory rate of 24. The patient was found to be hypoxic requiring 4 L of oxygen. The patient was given IV fluid in the emergency department and did have improved blood pressure. The patient was also given lactulose MT in the emergency department and did become a little bit more alert but still was quite confused and lethargic. The patient's lab work which was done at [facility] revealed a ammonia level of 82.9. The patient's bilirubin was only mildly elevated at 1.8 and his creatinine was significantly elevated at 2.9 from a baseline of is 1.2. The patient's did not have any leukocytosis his hemoglobin was near his baseline and his platelets were baseline. The patient was [facility] for hepatic encephalopathy and further workup for possible causes of hepatic encephalopathy History - Past Medical History Cardiovascular: reports: Hypertension, High cholesterol, Arrhythmia Respiratory: reports: Shortness of breath Neuro: reports: Other Endocrine/Autoimmune: reports: Type 2 diabetes GI: reports: GERD, Cirrhosis : reports: Frequency HEENT: reports: Chronic vision loss Psych: reports: Depression, Anxiety Musculoskeletal: reports: Fatigue Derm: reports: None MRSA Hx?: No - Past Surgical History Ortho: reports: Knee replacement Neuro: reports: Gamma knife Derm: reports: Skin cancer surgery - Family & Social History Family History: Mother: , Cancer, Father: Family History Comment/Other: Unknown PMX of biological father, patient was an only child. Living arrangement: [facility] Living Situation: Alone Social History Notes: The patient was recently discharged to [facility] for rehab. The patient is originally from [place] and was living with his in [place] until just recently when they moved here to be closer to their daughter who lives in [place]. The patient was declining in [place] and had had multiple falls and the patient's was no longer able to take care of him. The patient was drinking up until June 2017 and has developed alcoholic liver cirrhosis secondary to his alcoholism. The patient does not smoke cigarettes or use any illicit drugs at this time. - Substance History Use: Uses substance without health or social issues: Alcohol - POLST Patient has POLST: No POLST Status: DNR Meds/Allgy - Home Medications Home Medications: Ambulatory Orders Medication Instructions Recorded Confirmed Furosemide [Lasix] 40 mg PO BID #60 tablet 10/16/17 10/24/17 Insulin Aspart [NovoLOG] 1 - 5 unit SUBQ 10/16/17 10/24/17 0800,1200,1700,2100 #1 pen Insulin Glargine [Lantus Solostar] 20 unit SUBQ QPM #1 pen 10/16/17 10/24/17 Lactulose 15 ml PO TID #90 bottle 10/16/17 10/24/17 Metoprolol Tartrate 25 mg PO BID #60 tablet 10/16/17 10/24/17 Sertraline HCl [Zoloft] 100 mg PO DAILY #30 tablet 10/16/17 10/24/17 Spironolactone [Aldactone] 25 mg PO BID #60 tablet 10/16/17 10/24/17 Tamsulosin [Flomax] 0.4 mg PO DAILY #30 capsule 10/16/17 10/24/17 clonazePAM [Clonazepam] 1 mg PO BID #60 tablet 10/16/17 10/24/17 traZODone [Desyrel] 100 mg PO QPM #30 tablet 10/16/17 10/24/17 - Allergies Allergies/Adverse Reactions: Allergies Allergy/AdvReac Type Severity Reaction Status Date / Time No Known Drug Allergies Allergy Verified 10/13/17 15:47 Review of Systems - Other Findings Other Findings: Patient is unable to provide an adequate review of systems secondary to lethargy and altered mental status. Exam - Vital Signs Vital Signs: Vital Signs x48h Temp Pulse Pulse Resp BP BP Pulse Ox 10/24/17 17:52 82 95/50 L 10/24/17 17:49 36.6 C 76 16 101/41 L 92 10/24/17 17:04 74 24 97/47 L 97 10/24/17 17:00 73 24 72/52 L 95 - Physical Exam General Appearance: positive: Lethargic, Other (Patient is tachypneic, lethargic answers questions intermittently but is unable to provide any significant history.) Eyes Bilateral: positive: Normal inspection, PERRL, EOMI, No lid inflammation, Other (Mild conjunctival pallor and icterus) ENT: positive: ENT inspection nml, Pharynx nml, Dry mucous membranes. negative : Purulent nasal drainage, Pharyngeal erythema, Oral lesions Neck: positive: Nml inspection, Thyroid nml, No JVD, Trachea midline. negative : Thyromegaly, Lymphadenopathy (R), Lymphadenopathy (L), Carotid bruit, Tracheal deviation Respiratory: positive: Chest non-tender, Wheezes (scattered), Rales (bases) Cardiovascular: positive: Regular rate & rhythm, No murmur, No gallop Abdomen: positive: Non-tender, Other (Patient's abdomen is severely distended with positive fluid wave. It is soft there is no rebound or guarding no peritoneal signs). negative: Guarding, Rebound Back: positive: Nml inspection. negative: CVA tenderness (R), CVA tenderness (L ) Skin: positive: Warm, Dry, Pallor. negative: Cyanosis Extremities: positive: Full ROM, Nml appearance, Pedal edema (Bilateral 3+ pitting edema) Neurologic/Psychiatric: positive: Weakness (Generalized), Other (Patient is lethargic unable to provide history) Conclusion/Plan - Problem List (1) Hepatic encephalopathy Conclusion/Plan: Patient presents with altered mental status and lethargy. The patient has history of liver cirrhosis and has history of hepatic encephalopathy. Patient has been on lactulose but apparently was not taking his lactulose over the last 2 days at [facility]. The patient developed increasing lethargy and confusion over the course of the last day. The patient was found to have an ammonia level of 82.9 he was afebrile and had no leukocytosis. The cause of the patient's hepatic encephalopathy is thought to be noncompliance with medication however patient did not have complete infectious workup in the emergency department therefore it will have to be done after hospitalization. Plan: Place patient on lactulose as needed p.o. 60 g every 6 hours IV fluids Hold all sedative medications Chest x-ray, urinalysis, paracentesis to rule out infection Monitor mental status (2) LISSETTE (acute kidney injury) Conclusion/Plan: The patient appears to have acute kidney injury with a creatinine that is elevated to 2.9 from a baseline of 1.2 just 7 days earlier. The patient appears to be dry on examination of the the patient appears to be intravascularly dry on examination although he has significant anasarca, ascites and edema. The patient likely has acute kidney injury either secondary to hepatorenal syndrome or secondary to dehydration as the patient has been on Lasix and spironolactone for ascites and end-stage liver disease at home. Plan: Patient will be given IV fluids We will monitor his creatinine Patient's spironolactone and Lasix will be held We will consider starting Midrin and octreotide for hepatorenal syndrome cocktail if the patient's creatinine does not improve with IV fluids. (3) Alcoholic cirrhosis of liver with ascites Conclusion/Plan: Patient appears to have end-stage liver disease with alcoholic liver cirrhosis and severe ascites and anasarca. The patient's meld score is 24 which gives him an estimated 3 month mortality of 19.6%. The patient's family is aware of the patient's poor prognosis They are considering hospice and we have consulted hospice at this time. They should meet with the family tomorrow. The patient was on Lasix and Aldactone prior to presentation for his ascites however the patient's acute kidney injury will result in a stopping the Lasix and Aldactone. The patient will undergo paracentesis tomorrow to remove fluid from his abdomen as well as for diagnostic purposes. We will monitor the patient's LFTs We will also monitor hemoglobin to rule out any GI bleeding. (4) Metastatic melanoma Conclusion/Plan: The patient has metastatic melanoma with metastases to the chest as well as to the brain. The patient does have off-and-on left-sided weakness from the metastases to the brain but does not have any significant deficits. The family is considering hospice given the patient's liver cirrhosis and declining status. Hospice has been consulted and will meet with the family tomorrow (5) Diabetes mellitus Conclusion/Plan: Patient has history of diabetes on presentation blood glucose is elevated at 174. The patient does use Lantus at home. Plan: Patient will be continued on his home dose of Lantus Patient will be placed on sliding scale insulin We will check a hemoglobin A1c Patient will be placed on diabetic diet once he is more alert and able to eat Qualifiers: Diabetes mellitus type: type 2 Diabetes mellitus complication status: with hyperglycemia Diabetes mellitus intermediate insulin use: with intermediate use Qualified Code(s): E11.65 - Type 2 diabetes mellitus with hyperglycemia; Z79.4 - [facility] (current) use of insulin; Z79.4 - [employer] (current) use of insulin ; Z79.4 - [facility] (current) use of insulin; Z79.4 - [facility] (current) use of insulin - Lab Results Lab results reviewed: Yes Core Measures - Anticipated LOS I expect patient to be DC'd or transferred within 96 hours.: Yes - DVT/VTE - Prophylaxis VTE/DVT Device ordered at admit?: Yes
--- NOTE | 2017-10-24 18:44 | XRAY Preliminary Report ---
Exam: XR CHEST 1 VIEW X-RAY IMPRESSION: Mild bibasilar platelike atelectasis. Mildly low lung volumes. [facility] SITE ID: [id number]
--- NOTE | 2017-10-24 18:46 | XRAY Report ---
EXAM: CHEST RADIOGRAPHY EXAM DATE: 10/24/2017 06:37 PM. CLINICAL HISTORY: Hypoxia, altered mental status. COMPARISON: 10/13/2017. TECHNIQUE: 1 view. FINDINGS: Lungs/Pleura: Moderate elevation right hemidiaphragm unchanged. Bibasilar platelike atelectasis. No vascular congestion nor pneumothorax. Mediastinum: Within exam limitations, the cardiomediastinal contour is normal. Other: None. IMPRESSION: Mild bibasilar platelike atelectasis. Mildly low lung volumes. [facility] Referring Provider Line: [phone] SITE ID: [id number]
[2017-10-24] MEDS: SODIUM CHLORIDE 0.9% 1,000 ML IV SCH (19:00)
[2017-10-24] MEDS: LACTULOSE 10 GM/15 ML BOTTLE PO SCH ×2 (19:00→20:15)
[2017-10-24] MEDS: SODIUM CHLORIDE FLUSH 0.9% 10 ML SYRINGE IVP SCH (20:17)
[2017-10-24] MEDS ORDERED: METOPROLOL TARTRATE 25 MG TABLET PO SCH (21:00)
[2017-10-24] MEDS ORDERED: INSULIN GLARGINE 300 UNIT/3 ML PEN SUBQ SCH (21:00)
[2017-10-24] MEDS ORDERED: LACTULOSE 10 GM/15 ML BOTTLE PR SCH (22:00)
[2017-10-24 23:01] LABS: BILIRUBIN,URINE NEGATIVE (NEGATIVE); GLUCOSE, URINE (UA) NEGATIVE (NEGATIVE); KETONES,URINE (UA) NEGATIVE (NEGATIVE); LEUKOCYTE ESTERASE, URINE NEGATIVE (NEGATIVE); NITRITE,URINE NEGATIVE (NEGATIVE); OCCULT BLOOD,URINE TRACE-LYSE (NEGATIVE); PH,URINE 5.5 PH (5.0-7.5); PROTEIN,URINE NEGATIVE (NEGATIVE); UROBILINOGEN,URINE 1 (NORMAL) E.U./dL (NORMAL)
[2017-10-24 23:02] LABS: CLARITY,URINE CLEAR (CLEAR)
[2017-10-25] MEDS ORDERED: MIN OIL/DIMETHICON/COCONUT OIL 92 GM TUBE TOP PRN (04:04)
[2017-10-25] MEDS: SODIUM CHLORIDE 0.9% 1,000 ML IV SCH (04:28)
[2017-10-25] MEDS: SODIUM CHLORIDE FLUSH 0.9% 10 ML SYRINGE IVP SCH (06:20)
[2017-10-25 06:36] LABS: BASOPHILS # (AUTO) 0.1 10^3/uL (0.0-0.1); BASOPHILS % (AUTO) 0.8 %; EOSINOPHILS % (AUTO) 0.3 %; HGB - HEMOGLOBIN 7.8 g/dL (14.0-18.0); LYMPHOCYTES # (AUTO) 0.3 10^3/uL (1.5-3.5); LYMPHOCYTES % (AUTO) 3.8 %; MEAN CORPUSCULAR HEMOGLOBIN 19.5 pg (27.0-31.0); MEAN CORPUSCULAR HGB CONC 26.7 g/dL (32.0-36.0); MEAN CORPUSCULAR VOLUME 72.9 fL (80.0-94.0); MEAN PLATELET VOLUME 9.2 fL (7.4-11.4); MONOCYTES # (AUTO) 0.7 10^3/uL (0.0-1.0); MONOCYTES % (AUTO) 9.2 %; NEUTROPHILS # (AUTO) 6.3 10^3/uL (1.5-6.6); NEUTROPHILS % (AUTO) 85.9 %; PLT - PLATELET COUNT 87 10^3/uL (130-450); RED BLOOD COUNT 4.01 10^6/uL (4.70-6.10); RED CELL DISTRIBUTION WIDTH 20.7 % (12.0-15.0); WHITE BLOOD COUNT 7.3 x10^3/uL (4.8-10.8)
[2017-10-25 06:39] LABS: INR 1.5 (0.8-1.2); PT - PROTHROMBIN TIME 16.8 secs (9.9-12.6)
[2017-10-25 06:53] LABS: ALBUMIN/GLOBULIN RATIO 0.6 (1.0-2.2); BILIRUBIN,TOTAL 1.9 mg/dL (0.2-1.0); CALCIUM 8.6 mg/dL (8.5-10.3); CREATININE 3.1 mg/dL (0.6-1.2); MAGNESIUM 2.4 mg/dL (1.7-2.8); PHOSPHORUS 6.9 mg/dL (2.5-4.6); TOTAL PROTEIN 5.5 g/dL (6.7-8.2)
[2017-10-25] MEDS ORDERED: PANTOPRAZOLE 40 MG VIAL IVP SCH (07:00)
[2017-10-25 07:51] LABS: PLATELET ESTIMATE, MANUAL DECREASED (<130,000) (NORMAL); PLATELET MORPHOLOGY 1+ LARGE PLATELETS (NORMAL)
--- NOTE | 2017-10-25 08:40 | Discharge Plan ---
Discharge Plan Disposition: 20 Condition: Serious No Smoking: If you smoke, Please STOP! Call for help. Follow-up with: Bere Del Castillo PA-C [Primary Care Provider] -
[2017-10-25] MEDS ORDERED: POLYETHYLENE GLYCOL 3350 17 GM PACKET PO SCH (09:00)
[2017-10-25] MEDS ORDERED: TAMSULOSIN 0.4 MG CAPSULE PO SCH (09:00)
[2017-10-25 09:24] VITALS: BP 94/51
--- NOTE | 2017-10-25 09:27 | DISCHARGE SUMMARY ---
DATE OF SERVICE: Physician: Lindy Vazquez MD DATE OF ADMISSION: 10/24/2017 DATE OF DISCHARGE: 10/25/2017 DATE OF ADMISSION: 10/24/2017 DATE OF EXPIRATION: 10/25/2017. 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 The patient was recently hospitalized for hepatic encephalopathy earlier this month, had paracentesis of his ascites, was transferred to [facility] for management of his multiple medical problems including hepatic encephalopathy. The patient was noted to be spitting up his lactulose and therefore had worsening encephalopathy and was brought to the emergency room yesterday. Blood pressure was low at 86/57, he was tachypneic at a rate of 24, hypoxic, requiring 4 liters of oxygen supplementation. He was started on IV fluids for blood pressure, supplemental oxygen, Lactulose restarted. With this, he became a little more alert, was able to feed himself, speak with his daughter, who is present. HOSPITAL COURSE: 1. Respiratory failure. The patient's supplemental oxygen was continued from the ER. His chest x-ray on 10/24/2017 showed mild bibasilar plate-like atelectasis and low lung volumes. On 10/25/2017, the daughter witnessed the patient to be eating and then he stopped breathing and a rapid response was called. The patient only had agonal respirations and no palpable pulse. Telemetry confirmed that he had agonal ventricular rate. The patient was not resuscitated (as he had a DNR status) and was pronounced at 08:19 2. Altered mental status from hepatic encephalopathy. The patient's lactulose was continued. He was able to follow commands and converse. His ammonia level was minimally elevated. 3. Alcoholic liver cirrhosis. The patient's AST and ALT were normal and mild elevation of bilirubin at 1.9 at this admission. He did have ascites, which was not tense and he did not complain of abdominal pain. His recent paracentesis plus diuresis with loop diuretics and spironolactone was being used to manage the ascites previously. However, at this time, IV saline was being administered for intravascular volume depletion, causing low blood pressure. The patient's cirrhosis was felt to be due to a longstanding history of alcohol abuse. 4. Acute renal failure. The patient presented on this ER visit with a creatinine of 3.1, which recently was 1.2 and he was felt to have either hepatorenal syndrome or acute tubular necrosis from intravascular volume depletion due to diuretic use. Both diuretics were stopped and IV saline was being used at 100 mL an hour. 5. Insulin-dependent diabetes. The patient's glucose was 158. He was being managed with sliding scale insulin, glucose coverage and was on Lantus insulin. 6. Melanoma with metastasis to the brain and chest. In the past, he had minimal pleuritic chest pain, but this was not a problem at this admission. The brain metastasis may have been adding to his altered mental status. The patient had been made a DO NOT RESUSCITATE at the time of this admission on 10/24/2017. . TD: 10/25/2017 10:26 JESÚS
== END 2017-10-25 08:19 | disposition expired | DRG 432 ==
LOC: EDUNIT# → ED 15:52 → MS2 16:49
PROVIDERS: ADMIT Internal Medicine; ATTEND Internal Medicine
DX: K70.40 Alcoholic hepatic failure without coma (principal); K76.7 Hepatorenal syndrome; J96.91 Respiratory failure, unspecified with hypoxia; E78.00 Pure hypercholesterolemia, unspecified; I49.9 Cardiac arrhythmia, unspecified; N17.9 Acute kidney failure, unspecified; K21.9 Gastro-esophageal reflux disease without esophagitis; C79.31 Secondary malignant neoplasm of brain; C78.00 Secondary malignant neoplasm of unspecified lung; K70.31 Alcoholic cirrhosis of liver with ascites; Z85.828 Personal history of other malignant neoplasm of skin; E86.0 Dehydration; F10.21 Alcohol dependence, in remission; K72.90 Hepatic failure, unspecified without coma; I10 Essential (primary) hypertension; E11.65 Type 2 diabetes mellitus with hyperglycemia; F32.9 Major depressive disorder, single episode, unspecified; F41.9 Anxiety disorder, unspecified; H54.7 Unspecified visual loss; Z66 Do not resuscitate; T50.996A Underdosing of other drugs, medicaments and biological substances, initial encounter; Z96.659 Presence of unspecified artificial knee joint; Z85.820 Personal history of malignant melanoma of skin; Z85.038 Personal history of other malignant neoplasm of large intestine; Z79.4 Long term (current) use of insulin; Z79.899 Other long term (current) drug therapy; Z91.138 Patient's unintentional underdosing of medication regimen for other reason; Y92.129 Unspecified place in nursing home as the place of occurrence of the external cause; Z91.81 History of falling
CPT/HCPCS: 36415; 71045; 80053; 81001; 81003; 82140; 83605; 83735; 84100; 85025; 85610; 87086; 99283; 99284; 99285